=== PATIENT | female | born 1975 | race Hispanic/Latino ===

== ENCOUNTER 2022-08-25 15:12 | Emergency (ER) | payer MEDICAID, SELFPAY ==
--- NOTE | ~2022-08-25 | XR_ITS ---
XR toe 1st RT min 2V 08/25/2022 15:59 INDICATION: Right first toe pain. Infection. PROCEDURE: 3 views right first toe COMPARISON: No prior studies for comparison. FINDINGS: Fracture, dislocation or subluxation is not identified. There is soft tissue swelling of th e first toe with soft tissue gas, consistent with cellulitis. No evidence for underlying osteomyeliti s. No foreign bodies are identified. IMPRESSION: 1: Moderate soft tissue swelling of the first toe with associated gas, consistent with cellulitis. No definite osteomyelitis identified. If there is continued concern for osteomyelitis, further evaluati on with MRI is recommended. Reviewed, dictated and finalized at location L. IMPRESSION: 1: Moderate soft tissue swelling of the first toe with associated gas, consiste nt with cellulitis. No definite osteomyelitis identified. If there is continued concern for osteomyelitis, further evaluation with MRI is recommended.
--- NOTE | 2022-08-25 15:24 | ED.NAVMDI ---
HPI - Nausea/Vomiting/Diarrhea General Chief complaint: Extremity Injury, Lower Stated complaint: Right Foot Wound Source: patient and RN notes reviewed Mode of arrival: ambulatory Limitations: no limitations History of Present Illness MD elicited complaint: nausea, vomiting and diarrhea Related Data Allergies Allergy/AdvReac Type Severity Reaction Status Date / Time No Known Allergies Allergy Unverified 03/20/17 23:15 Review of Systems Review of Systems: CONSTITUTIONAL: Denies malaise, chills, sweats, or fever. ENT: Denies rhinorrhea, congestion, sinus pain, otalgia or sore throat. CARDIOVASCULAR: Denies chest pain, palpitations, or edema. RESPIRATORY: Denies cough or dyspnea. GASTROINTESTINAL: Denies abdominal pain, nausea, vomiting, diarrhea, bloody, or mucous stools. GENITOURINARY: Denies dysuria or hematuria. MUSCULOSKELETAL: Denies myalgia. NEUROLOGIC: Denies headache. All systems reviewed & are unremarkable except as noted in HPI and below PMFSH Comments At time of signature, agree with nursing past medical, surgical, social and family history. There is no relevant family history pertinent to the presenting complaint Exam Narrative: GENERAL: Well-appearing, well-nourished, and in no acute distress. HEAD: Normocephalic, atraumatic. EYES: PERRLA, conjunctivae clear, and EOMI. ENT: Nares clear, turbinates pink, no rhinorrhea or epistaxis. Mucous membranes moist. Oropharynx without edema, erythema, or lesions. Tonsils not enlarged and without exudate. NECK: Supple. No lymphadenopathy CHEST: Speaks in full sentences. No respiratory distress. HEART: Regular rate and rhythm. ABDOMEN: Soft, flat, nondistended, nontender. No guarding, rebound tenderness, or rigidity. No pulsatile masses. Bowel sounds present in all four quadrants. No organomegaly. Negative Chaidez?s sign. No periumbilical tenderness. No Supra public tenderness or distension. Good femoral pulses bilaterally. No hernia noted. No scars or surface trauma. SKIN: Warm, dry, no rash. NEURO: Alert and oriented x3. PSYCH: Normal mood and affect Course Course Emergency Course: Patient is aware of diagnosis, understands and agrees to treatment plan. Anticipatory guidance given. Patient agrees to follow-up as directed and is aware of reasons to seek care at the emergency department. Portions of this record may have been created with voice recognition software Level of Care: Express Care Visit Vital Signs Vital signs: Reviewed. MDM - Nausea/Vomiting/Diarrhea MDM Narrative Medical decision making narrative: No evidence of pancreatitis, AAA, cholecystitis, choledocholithiasis, cholangitis, mesenteric ischemia, small bowel obstruction, diverticulitis, colitis, appendicitis, or pelvic etiology such as ovarian/testicular torsion, TOA, or ectopic . Patient has no history of peptic ulcer, H. pylori, chronic aspirin NSAID or corticosteroid use, chronic alcohol use, no history of inflammatory bowel disease, no history of active abdominal infection or malignancy. Patient has no history of hernia or intra-abdominal surgeries, patient denies absence of flatus, constipation, melena, hematemesis. Patient denies post-prandial pain. No pain-out of proportion. Exam findings show no acute concerns or changes; patient is non-toxic appearing and is in no distress. Patient is appropriate for outpatient treatment and follow-up. Critical Care Time Critical Care Time Critical Care Time: No Discharge Plan Discharge Clinical Impression: Nausea and vomiting Patient Disposition: Home, Self-Care Condition: Stable Instructions: Acute Nausea and Vomiting (ED) Additional Instructions: Your urine looks normal, there is no indication you have urinary tract infection Your rapid strep swab was negative today at [facility]. A throat culture will be sent to the laboratory for further testing. If the test is positive, you will receive a phone call within 48 hours
[2022-08-25 15:27] VITALS: BP 142/74; PULSE 104; RESP 16; TEMP 37.9; O2SAT 99
--- NOTE | 2022-08-25 15:39 | ED.EXTPRO ---
HPI - Extremity Problem General Chief complaint: Extremity Injury, Lower Stated complaint: Right Foot Wound Time Seen by Provider: 08/25/22 15:44 Source: patient and RN notes reviewed Mode of arrival: ambulatory Limitations: dementia History of Present Illness HPI Narrative: 47-year-old female history of diabetes presents with concern for redness, swelling, pain to the 1st digit of her right foot. She reports pain is radiating up her foot, lower leg today. She reports symptoms started 2 days ago. She reports a white ulceration appeared in between the toes today. She denies injury. She denies body aches, chills, sweats. She has low-grade fever today MD Complaint: extremity pain and extremity swelling Related Data Home Medications Medication Instructions Recorded Confirmed No Home Medications 08/25/22 08/25/22 Allergies Allergy/AdvReac Type Severity Reaction Status Date / Time No Known Allergies Allergy Verified 08/25/22 15:31 Review of Systems Review of Systems: CONSTITUTIONAL: Denies malaise, chills, sweats, or fever. EYES: Denies redness, or discharge. ENT: Denies rhinorrhea, congestion, swollen lips, swollen tongue CARDIOVASCULAR: Denies chest pain, palpitations, or edema. RESPIRATORY: Denies cough or dyspnea. GASTROINTESTINAL: Denies abdominal pain, nausea, vomiting SKIN: Reports redness, swelling pain to the 1st digit of the right foot. Denies purulent drainage, vesicles, bullae, numbness, pain beyond proportion MUSCULOSKELETAL: Denies joint pain or myalgia. NEUROLOGIC: Denies headache. All systems reviewed & are unremarkable except as noted in HPI and below PMFSH Comments At time of signature, agree with nursing past medical, surgical, social and family history. There is no relevant family history pertinent to the presenting complaint Exam Narrative: GENERAL: Well-appearing, well-nourished, and in no acute distress. HEAD: Normocephalic, atraumatic. EYES: PERRLA, conjunctivae clear ENT: Mucous membranes moist. NECK: Supple. No lymphadenopathy CHEST: Clear to auscultation. No respiratory distress. HEART: Regular rate and rhythm. SKIN: Warm, dry. Erythema, induration, tenderness, warmth noted to the 1st digit of the right foot, small white ulceration approximately 0.5 cm noted to the low medial 1st digit, white discoloration noted to the pedal aspect of the digit, however patient had applied gentian roosevelt to the digit making it hard to fully evaluate; small amount of redness extending onto the dorsal foot. NEURO: Alert and oriented x3. PSYCH: Normal mood and affect Course Course Emergency Course: Patient is aware of, understands and agrees to be transferred to the emergency room. Patient agrees to proceed directly to the emergency department. Portions of this record may have been created with voice recognition software Level of Care: Express Care Visit Vital Signs Vital signs: Vital Signs Temperature 100.2 F H 08/25/22 15:27 Pulse Rate 104 H 08/25/22 15:27 Respiratory Rate 16 08/25/22 15:27 Blood Pressure 142/74 H 08/25/22 15:27 Pulse Oximetry 99 08/25/22 15:27 Oxygen Delivery Room Air 08/25/22 15:27 Temperature 100.2 F H 08/25/22 15:27 Pulse Rate 104 H 08/25/22 15:27 Respiratory Rate 16 08/25/22 15:27 Blood Pressure 142/74 H 08/25/22 15:27 Pulse Oximetry 99 08/25/22 15:27 Oxygen Delivery Room Air 08/25/22 15:27 Reviewed. Transfer Transfered to: [facility] Transportation: Other (Private vehicle) Transfer rationale: Subcutaneous gas, infection MDM - Extremity (Nontraumatic) MDM Narrative Medical decision making narrative: Exam findings and imaging warrant further evaluation emergency department; patient is non-toxic appearing and is in no distress. Imaging Data Radiologist's impression: XR toe 1st RT min 2V 08/25/2022 15:59 INDICATION: Right first toe pain. Infection. PROCEDURE: 3 views right first toe COMPARISON: No pr
== END 2022-08-25 16:15 | disposition short-term general hospital (02) ==
PROVIDERS: Emergency Provider Nurse Practitioner
DX: L08.9 Local infection of the skin and subcutaneous tissue, unspecified (principal); E11.9 Type 2 diabetes mellitus without complications
CPT/HCPCS: 73660; 99213; G0463

== ENCOUNTER 2022-08-25 16:55 | Inpatient (IN) | payer MEDICAID, SELFPAY ==
--- NOTE | ~2022-08-25 | CT_ITS ---
CT OF EXAMINATION: CT foot RT w con DATE: 08/25/2022 22:05 INDICATION: TECHNIQUE: Computed tomography (CT) of the was performed without intravenous contrast. Automated expo sure control and iterative reconstruction technique were employed. The dose-length product was 467.22 mGy-cm. COMPARISON: X-ray first toe, same date FINDINGS: Mild subcutaneous edema about the ankle and foot. Subcutaneous induration in the first toe. No focal fluid collection. No subcutaneous gas. No osseous fracture. No osseous erosion. Plantar enthesopathy. Possible small soft tissue defect/ulcer on the inferior aspect of the great toe. IMPRESSION: Soft tissue swelling in the first toe and foot. Correlate for clinical findings of cellulitis. No sub cutaneous gas. No CT evidence of abscess or osteomyelitis. Reviewed, dictated and finalized at location K. IMPRESSION: Soft tissue swelling in the first toe and foot. Correlate for clinical findings of cellulitis. No subcutaneous gas. No CT evidence of abscess or osteomyelitis .
[2022-08-25 17:18] VITALS: BP 135/71; PULSE 100; RESP 18; TEMP 36.4; O2SAT 100
--- NOTE | 2022-08-25 20:48 | ED.GENADULT ---
HPI - General Adult General Chief complaint: Skin/Abscess/Foreign Body <Santos Tafoya PA-C - Last Filed: 08/26/22 00:06> Stated complaint: foot infection <JOSE Abdullahi Last Filed: 08/26/22 00:06> Time Seen by Provider: 08/25/22 19:53 <JOSE Abdullahi Last Filed: 08/26/22 00:06> Source: patient <JOSE Abdullahi Last Filed: 08/26/22 00:06> Mode of arrival: ambulatory <JOSE Abdullahi Last Filed: 08/26/22 00:06> Limitations: no limitations <JOSE Abdullahi Last Filed: 08/26/22 00:06> History of Present Illness HPI narrative: This is a 47-year-old female with PMH of T2DM who presents to the ED with chief complaint of right great toe pain and swelling onset x5 days. Patient states that the pain initially began Wednesday. She does a lot of walking for work and noticed that her toe was painful. Over the weekend it became more swollen and red. Today she went to urgent care and was referred here for further evaluation and treatment. Patient reports that she noticed some drainage a few days ago from the toe. Also reports blisters and redness is spreading down to the first MTP but no further in the foot or leg. Denies fevers or chills, nausea or vomiting, chest pain, shortness of breath, cough, abdominal pain. Denies any history of neuropathy or numbness or weakness. Per chart review x-ray of the right foot done today shows 1: Moderate soft tissue swelling of the first toe with associated gas, consistent with cellulitis. No definite osteomyelitis identified. If there is continued concern for osteomyelitis, further evaluation with MRI is recommended.. <JOSE Abdullahi Last Filed: 08/26/22 00:06> Related Data Home medications: Home Medications Medication Instructions Recorded Confirmed No Home Medications 08/25/22 08/26/22 <JOSE Abdullahi Last Filed: 08/26/22 00:06> Allergies/adverse reactions: Allergies Allergy/AdvReac Type Severity Reaction Status Date / Time No Known Allergies Allergy Verified 08/25/22 21:01 <Santos Tafoya PA-C - Last Filed: 08/26/22 00:06> [facility] Social History Social History: Social History Smoking status: Smoker, status unknown Alcohol intake: never Substance use: never Substance use type: does not use Lack of Transportation: No Lack of Food: Never True Current Housing: I Have Housing Concerned About Future Housing: No Difficulty Paying Gas/Electric Bills: No Difficulty Paying for Meds: No Currently Unemployed: No Education: Decline to Answer Difficulty w/ Childcare or Family Care: No Spiritual care concerns: No <Santos Tafoya PA-C - Last Filed: 08/26/22 00:06> Exam Narrative: GENERAL: Well-appearing, well-nourished, and in no acute distress. HEAD: Normocephalic, atraumatic. EYES: PERRLA and EOMI. ENT: Nares clear, no rhinorrhea or epistaxis. Mucous membranes moist. Oropharynx without tonsillar hypertrophy exudate or other lesions. NECK: Supple. No adenopathy or masses. CHEST: No respiratory distress. Clear to auscultation. No wheezes rales or rhonchi HEART: Regular rate and rhythm. No murmur heard. Normal peripheral pulses. ABDOMEN: Soft, nontender, nondistended, normal active bowel sounds. MSK: Right foot: Right great toe erythematous with bullous lesions. There is some serosanguineous drainage from the palmar side of the toe. Left foot: Benign. SKIN: Warm, dry, no rash. NEURO: Alert and oriented x3. No focal deficits. PSYCH: Normal mood and affect. <Santos Tafoya PA-C - Last Filed: 08/26/22 00:06> Course RN FLOAT/PA Physician Supervision Patient presenting from urgent care for right great toe ecchymosis, wound with concern for cellulitis and potential gas forming infection. Time of assessment, patient is hemodynamically stable and well-appearing with stable vital signs. IV access obtained and labs are drawn. Blood cultures obtaine
[2022-08-25 21:09] VITALS: BP 138/77; PULSE 92; RESP 14; O2SAT 99
[2022-08-25 21:10] LABS: Basophils Absolute Auto 0.1 K/mm3 (0.0-0.1); Basophils Percent Auto 0.4 % (0.2-1.2); Eosinophils Absolute Auto 0.1 K/mm3 (0-0.3); Eosinophils Percent Auto 0.6 % (0-4.4); Hemoglobin 11.9 g/dL (12.0-15.0); Immature Granulocyte Absolute 0.12 K/mm3 (0.00-0.031); Immature Granulocyte Percent A 0.7 % (0-0.5); Lymphocytes Absolute Auto 2.69 K/mm3 (0.9-3.2); Lymphocytes Percent Auto 16.4 % (18.3-44.2); Mean Corpuscular Hemoglobin 30.4 pg (26-34); Mean Corpuscular Volume 89.5 fl (80-100); Mean Platelet Volume 10.3 fl (7.4-10.4); Monocytes Percent Auto 5.9 % (2.6-8.5); Neutrophils Absolute Auto 12.5 K/mm3 (1.3-6.7); Platelet Count Result 260 k/mm3 (150-375); Red Blood Count 3.91 M/mm3 (4.2-5.4); Red Cell Distribution Width 12.6 % (11.5-14.5); White Blood Count 16.4 K/mm3 (4.5-10.0)
[2022-08-25 21:23] LABS: Alanine Aminotransferase 36 U/L (6-35); Albumin Level 4.1 g/dL (3.5-5.1); Alkaline Phosphatase 98 U/L (38-126); Anion Gap 8 mmol/L (8-16); Aspartate Amino Transferase 29 U/L (14-36); Bilirubin,Total 0.5 mg/dL (0.2-1.3); Blood Urea Nitrogen 10 mg/dL (7-17); CRP 6.5 mg/dL (<1.0); Calcium 8.8 mg/dL (8.4-10.2); Carbon Dioxide 23 mmol/L (22-30); Chloride 103 mmol/L (98-107); Estimated CRCL calculation 111 ml/min; Estimated Glomerular Filt Rate > 60; Glucose 331 mg/dL (65-110); Potassium 3.9 mmol/L (3.4-5.0); Sodium 134 mmol/L (137-145)
[2022-08-25] MEDS: SODIUM CHLORIDE 0.9% IV 1,000 ML 999 ML IV CONT ×2 (21:45→21:46)
[2022-08-25] MEDS: HYDROmorphone HCL INJ (*CRX) 1 MG/ML SYR 0.5 MG IV PUSH (22:37)
[2022-08-25 23:08] LABS: INR 1.1; Prothrombin Time 14.3 Seconds (11.1-14.7)
[2022-08-25] MEDS: MEROPENEM 1 GM in SODIUM CHLORIDE 0.9% IV 100 ML 200 ML IVPB (23:15)
[2022-08-25 23:19] LABS: Erythrocyte Sedimentation Rate 115 mm/hr (0-20)
[2022-08-25 23:30] LABS: Lactic Acid Reflex 0.8 mmol/L (0.7-2.0)
[2022-08-26] MEDS: VANCOMYCIN 1,250 MG/NS 250 ML 1,250 MG/250 ML BAG 166.67 MG IVPB (00:26)
[2022-08-26 00:27] VITALS: BP 134/73; PULSE 73; RESP 16; O2SAT 98
[2022-08-26] MEDS: SODIUM CHLORIDE 0.9% IV 1,000 ML 125 ML IV CONT (00:48)
[2022-08-26] MEDS: CLINDAMYCIN 900 MG/D5W 50 ML 900 MG/50 ML PIGGYBACK 50 MG IVPB (00:48)
--- NOTE | 2022-08-26 00:52 | PC.NURSE ---
This patient, Charla Harris, was admitted to [facility] Surg Room 311-01. Patient/family oriented to hospital policies and general routines including ID bracelet, bed and alarms, visiting hours, pain management, procedures, bathroom and other care routines, personal items, smoking policy, room service/diet, and visiting hours. Information on how to activate the Rapid Response Team has been discussed. Patient/Family are encouraged to report perceived risks to care and to ask questions if they do not understand what they are told or what they should do.
[2022-08-26 00:56] VITALS: BP 135/68; PULSE 96; RESP 16; TEMP 36.4; O2SAT 95
[2022-08-26 00:57] VITALS: BMI 31.2
--- NOTE | 2022-08-26 01:05 | PC.NURSE ---
pt denies taking medication but did state she is dm, and declines any other medical hx.
[2022-08-26 01:10] LABS: Glucose Point of Care 209 mg/dl (65-105)
--- NOTE | 2022-08-26 01:38 | PM.IMHP ---
H&P: HPI History of Present Illness Date/Time: 08/26/22 01:38 Chief Complaint: Toe cellulitis Narrative: This is a 47-year-old female with past medical history significant for type 2 diabetes mellitus, patient presents to the emergency room with right big toe swelling, discharge, pain, tenderness, warmth, for 2 weeks, patient initially noted an opening on the dorsum of the toe and eventually begin red warm and pain for with purulent discharge. Patient denies any fevers, rigors, chills, nausea, vomiting, diarrhea. Preliminary workup [place] [id number] x-ray of the toe was reported as: XR toe 1st RT min 2V 08/25/2022 15:59 INDICATION: Right first toe pain. Infection. PROCEDURE: 3 views right first toe COMPARISON: No prior studies for comparison. FINDINGS: Fracture, dislocation or subluxation is not identified. There is soft tissue swelling of the first toe with soft tissue gas, consistent with cellulitis. No evidence for underlying osteomyelitis.? No foreign bodies are identified. IMPRESSION: 1: Moderate soft tissue swelling of the first toe with associated gas, consistent with cellulitis. No definite osteomyelitis identified. If there is continued concern for osteomyelitis, further evaluation with MRI is recommended. CT of the foot was reported as: CT OF EXAMINATION: CT foot RT w con DATE: 08/25/2022 22:05 INDICATION: TECHNIQUE: Computed tomography (CT) of the was performed without intravenous contrast. Automated exposure control and iterative reconstruction technique were employed. The dose-length product was 467.22 mGy-cm. COMPARISON: X-ray first toe, same date FINDINGS: Mild subcutaneous edema about the ankle and foot. Subcutaneous induration in the first toe. No focal fluid collection. No subcutaneous gas. No osseous fracture. No osseous erosion. Plantar enthesopathy. Possible small soft tissue defect/ulcer on the inferior aspect of the great toe. IMPRESSION: Soft tissue swelling in the first toe and foot. Correlate for clinical findings of cellulitis. No subcutaneous gas. No CT evidence of abscess or osteomyelitis. Review of Systems Review of Systems: Right toe swelling, tenderness,warmth, redness, discoloration discharge. Constitutional: Constitutional: Denies chills, Denies fatigue, Denies fever(s), Denies malaise, Denies night sweats, Denies poor appetite and Denies weakness Eyes: Eyes: Denies change in vision ENT: Denies dysphagia and Denies odynophagia Cardiovascular: Cardiovascular: Denies chest pain, Denies radiating jaw, neck or arm pain and Denies palpitations Respiratory: Respiratory: Denies chest congestion, Denies cough, Denies excessive phlegm production and Denies dyspnea Gastrointestinal: Gastrointestinal: Denies abdominal pain, Denies dyspepsia, Denies heartburn, Denies diarrhea, Denies nausea and Denies vomiting Genitourinary: Genitourinary: Denies dysuria Musculoskeletal: Musculoskeletal: Reports other (Right toe swelling tenderness discoloration discharge) Integumentary/Breasts: Skin/Breast: Reports swelling (Right toe), Reports skin pain, Reports skin swelling and Reports wounds Neurologic: Denies vertigo, Denies dizziness, Denies focal weakness and Denies Sensory deficit (Neuro) Psychiatric: Psychiatric: Reports no additional psychiatric complaints and Reports as per HPI Endocrine: Endocrine: Denies cold intolerance, Denies flushing, Denies heat intolerance, Denies polyphagia, Denies polydipsia and Denies palpitations Hematologic/Lymphatic: Hematologic/Lymphatic: Reports no additional hematologic/lymphatic complaints and Reports as per HPI Allergic/Immunologic: Allergic/Immunologic: Reports no additional allergic/immunologic complaints and Reports as per HPI COUNT INCLUDES THE [facility] Social History Social History Smoking status: Smoker, status unknown Alcohol intake: never Substance use: never Substance use type: does not use Lack of Transportatio
[2022-08-26 05:51] LABS: Glucose Point of Care 167 mg/dl (65-105)
[2022-08-26 05:56] VITALS: BP 121/65; PULSE 79; RESP 16; TEMP 36.7; O2SAT 99
--- NOTE | 2022-08-26 06:13 | PC.NURSE ---
wound R great inferior toe uploaded to [facility] is morning.
[2022-08-26] MEDS: traMADol HCL (*CRX) 50 MG TABLET PO (08:48)
[2022-08-26 09:12] LABS: Basophils Absolute Auto 0.1 K/mm3 (0.0-0.1); Basophils Percent Auto 0.4 % (0.2-1.2); Eosinophils Absolute Auto 0.2 K/mm3 (0-0.3); Eosinophils Percent Auto 1.4 % (0-4.4); Hematocrit 28.9 % (37.0-47.0); Hemoglobin 9.8 g/dL (12.0-15.0); Immature Granulocyte Absolute 0.05 K/mm3 (0.00-0.031); Immature Granulocyte Percent A 0.4 % (0-0.5); Lymphocytes Absolute Auto 3.27 K/mm3 (0.9-3.2); Lymphocytes Percent Auto 25.6 % (18.3-44.2); Mean Corpuscular HGB Conc 33.9 g/dl (32-36); Mean Corpuscular Hemoglobin 30.3 pg (26-34); Mean Corpuscular Volume 89.5 fl (80-100); Mean Platelet Volume 10.3 fl (7.4-10.4); Monocytes Absolute Auto 0.8 K/mm3 (0.1-0.6); Neutrophils Absolute Auto 8.4 K/mm3 (1.3-6.7); Neutrophils Percent Auto 66.2 % (45.5-73.1); Platelet Count Result 215 k/mm3 (150-375); Red Blood Count 3.23 M/mm3 (4.2-5.4); Red Cell Distribution Width 12.5 % (11.5-14.5); White Blood Count 12.8 K/mm3 (4.5-10.0)
[2022-08-26 09:39] LABS: Hemoglobin A1C 11.1 % (<5.7)
--- NOTE | 2022-08-26 10:54 | PM.CNGS ---
Assessment and Plan Assessment and plan (1) Cellulitis of great toe, right: Code(s): L03.031 - Cellulitis of right toe Status: Acute Assessment and Plan: d/w wound care nurse, no active drainage at this time, no fluctuance, will cont local wound care and abx (2) Uncontrolled diabetes mellitus: Status: Acute Assessment and Plan: will need good bs control, d/w pt History of Present Illness Consult details Consult date: 08/26/22 Reason for consult: wound care Requesting physician: Erik Del Rio MD Narrative: Patient is a old female presenting to the Emergency Department complaining of worsening right 1st toe cellulitis and pain. The patient reports that symptoms started approximately 2 weeks ago with punctate opening on the plantar aspect of right 1st toe. Patient reports some drainage from the area that has progressively worsened to more swelling and cellulitis. The patient reports the area is quite tender and had some purulent drainage. The patient denies any systemic symptoms fevers chills, nausea vomiting. The patient reports that she is diabetic and does suffer from some peripheral neuropathy. Review of Systems Constitutional: Constitutional: Reports as per HPI, Denies anorexia, Denies chills, Denies fatigue, Denies fever(s), Denies lethargy, Denies malaise, Denies poor appetite, Denies weakness, Denies weight gain and Denies weight loss Eyes: Eyes: Reports no additional eye complaints ENT: Reports system reviewed and no additional complaints, except as documented Cardiovascular: Cardiovascular: Reports no additional cardiovascular complaints Respiratory: Respiratory: Reports no additional respiratory complaints Gastrointestinal: Gastrointestinal: Reports no additional gastrointestinal complaints Genitourinary: Genitourinary: Reports no additional female genitourinary complaints Musculoskeletal: Musculoskeletal: Reports no additional musculoskeletal complaints Integumentary/Breasts: Skin/Breast: Reports system reviewed and no additional complaints, except as docu Neurologic: Reports system reviewed and no additional complaints, except as documented Psychiatric: Psychiatric: Reports no additional psychiatric complaints Endocrine: Endocrine: Reports no additional endocrine complaints Hematologic/Lymphatic: Hematologic/Lymphatic: Reports no additional hematologic/lymphatic complaints Allergic/Immunologic: Allergic/Immunologic: Reports no additional allergic/immunologic complaints PMFSH Social History Social History Smoking status: Smoker, status unknown Alcohol intake: never Substance use: never Substance use type: does not use Lack of Transportation: No Lack of Food: Never True Current Housing: I Have Housing Concerned About Future Housing: No Difficulty Paying Gas/Electric Bills: No Difficulty Paying for Meds: No Currently Unemployed: No Education: Decline to Answer Difficulty w/ Childcare or Family Care: No Spiritual care concerns: No Comments PMH - DM PSxH - no foot surgeries, abscess FH - DM, HTN Meds Home Medications and Allergies Home Medications Medication Instructions Recorded Confirmed Type No Home Medications 08/25/22 08/26/22 History Allergies Allergy/AdvReac Type Severity Reaction Status Date / Time No Known Allergies Allergy Verified 08/25/22 21:01 Vital Signs Vital Signs - 24 hr 08/25/22 17:18 08/25/22 21:09 08/26/22 00:27 Temperature 36.4 C L Pulse Rate 100 92 73 Respiratory Rate 18 14 16 Blood Pressure 135/71 138/77 134/73 Pulse Oximetry 100 99 98 Oxygen Delivery Room Air 08/26/22 00:56 08/26/22 05:56 Temperature 36.4 C 36.7 C Pulse Rate 96 79 Respiratory Rate 16 16 Blood Pressure 135/68 121/65 Pulse Oximetry 95 99 Oxygen Delivery Exam Const: General: cooperative, comfortable and no acute distress HENMT: Head: normal t
[2022-08-26 11:25] LABS: Glucose Point of Care 175 mg/dl (65-105)
[2022-08-26] MEDS: VANCOMYCIN 1,250 MG/NS 250 ML 1,250 MG/250 ML BAG 166.6 MG IVPB (11:57)
[2022-08-26] MEDS: INSULIN ASPART (*BKC) 100 UNITS/ML SUB-Q ×2 (12:03→17:17)
[2022-08-26] MEDS: HYDROcodone/acetaminophen (*CRX) 5-325 MG TABLET 1 TAB PO ×2 (12:47→23:06)
[2022-08-26] MEDS: ENOXAPARIN 40 MG/0.4 ML SYRINGE SUB-Q (12:48)
--- NOTE | 2022-08-26 13:00 | PM.IMPN ---
Progress Note: A&P Assessment and Plan (1) Cellulitis of great toe, right: Code(s): L03.031 - Cellulitis of right toe Status: Acute Assessment and Plan: Patient presented with cellulitis of right great toe and shallow ulceration on plantar surface of right great toe. Febrile on presentation, 100.2?, WBC 16.4, CRP 6.5 Continue IV vancomycin. Wound culture and blood culture pending. Appreciate general surgery consultation and wound care evaluation. Remaining afebrile today. WBC trending down. (2) Open wnd toe-complicated: Code(s): S91.109A - Unspecified open wound of unspecified toe(s) without damage to nail, initial encounter Status: Acute Assessment and Plan: See plan as above. Cover blister with dry gauze. (3) Uncontrolled diabetes mellitus: Status: Acute Assessment and Plan: A1c is 11.1. Patient does not appear to be any medications for diabetes at home. With Accu-Cheks low-dose sliding scale insulin, hypoglycemic protocol. 4 units NovoLog scheduled with meals. Initiate Lantus [address] consult to simulation educator. Patient will likely require home insulin as well as metformin. Continue diabetic diet. Subjective Date/time seen: 08/26/22 13:00 Interval history: Date of service: 08/26/2022 Charla Harris is a 47-year-old female with poorly controlled type 2 diabetes mellitus who is seen in follow-up for right toe cellulitis. The patient believes that her right toe looks better today, states that her redness has gone down. She does endorse 9/10 pain in the toe is persistent. States that last night it was draining. She denies nausea, vomiting, fever, or chills. She has been able to ambulate and is walking on her right heel. She denies abdominal pain, chest pain, shortness of breath, urinary symptoms. Review of Systems Review of Systems: All systems reviewed & are unremarkable except as noted in HPI and below Exam Narrative: General: Well-nourished, well-appearing 47-year-old female, sitting up in bed, comfortable, NARD Neuro: awake, alert and oriented x4, speech clear, no focal neuro deficits noted HEENMT: normocephalic, atraumatic, EOMI, sclerae anicteric Respiratory: clear to auscultation bilaterally, nonlabored breathing Cardio: regular rate, regular rhythm with S1-S2 Abdomen: nondistended, normoactive bowel sounds, soft, nontender to palpation Extremities: Right great toe is edematous, erythematous, small ulceration on plantar surface of left toe without drainage or purulence, right lower extremity with 2+ edema, LLE no edema, erythema, or tenderness to palpation, DP pulses 2+ bilaterally, able to wiggle toes bilaterally, brisk capillary refill bilaterally Skin: no rashes or lesions, warm and dry Psych: appropriate mood and affect, judgment and insight intact Objective Data Vital Signs Vital Signs: Vital Signs - 24 hr 08/25/22 17:18 08/25/22 21:09 08/26/22 00:27 Temperature 97.5 F L Pulse Rate 100 92 73 Respiratory Rate 18 14 16 Blood Pressure 135/71 138/77 134/73 Pulse Oximetry 100 99 98 Oxygen Delivery Room Air 08/26/22 00:56 08/26/22 05:56 Temperature 97.6 F 98.1 F Pulse Rate 96 79 Respiratory Rate 16 16 Blood Pressure 135/68 121/65 Pulse Oximetry 95 99 Oxygen Delivery Intake/Output Intake/Output: Intake & Output 08/23/22 08/24/22 08/25/22 08/26/22 23:59 23:59 23:59 23:59 Intake Total 2400 Balance 2400 Meds/Results Medications: Active Medications Generic Name Dose Route Start Last Admin Trade Name Freq PRN Reason Stop Dose Admin Acetaminophen 650 mg 08/26/22 12:06 Acetaminophen 325 Mg Tablet PO Q6H PRN Mild Pain (1-3) or Fever Hydrocodone Bitart/Acetaminophen 1 tab 08/26/22 12:05 08/26/22 12:47 Hydrocodone/Acetaminophen (*Crx) 5-325 Mg Tablet PO 1 tab Q6H PRN Administration Pain Rated 4-6 Al Hydrox/Mg Hydrox/Simethicone 30 ml 08/26
[2022-08-26 14:00] VITALS: BP 107/67; PULSE 83; RESP 14; TEMP 36.4; O2SAT 99
[2022-08-26 16:27] LABS: Glucose Point of Care 183 mg/dl (65-105)
[2022-08-26 20:00] VITALS: O2SAT 99
[2022-08-26 20:35] VITALS: BP 131/74; PULSE 84; RESP 16; TEMP 36.1; O2SAT 100
[2022-08-26 20:38] LABS: Glucose Point of Care 226 mg/dl (65-105)
[2022-08-26] MEDS: INSULIN GLARGINE (*BKC) 100 UNITS/ML 10 UNITS SUB-Q (20:52)
[2022-08-26] MEDS: VANCOMYCIN 1,250 MG/NS 250 ML 1,250 MG/250 ML BAG 250 MG IVPB (23:06)
[2022-08-27] MEDS: HYDROcodone/acetaminophen (*CRX) 5-325 MG TABLET 1 TAB PO ×3 (04:53→20:15)
[2022-08-27 06:07] VITALS: BP 121/66; PULSE 89; RESP 16; TEMP 36.6; O2SAT 100
[2022-08-27 06:46] LABS: Basophils Absolute Auto 0.1 K/mm3 (0.0-0.1); Basophils Percent Auto 0.5 % (0.2-1.2); Eosinophils Absolute Auto 0.2 K/mm3 (0-0.3); Eosinophils Percent Auto 1.6 % (0-4.4); Hematocrit 29.6 % (37.0-47.0); Immature Granulocyte Absolute 0.07 K/mm3 (0.00-0.031); Immature Granulocyte Percent A 0.7 % (0-0.5); Lymphocytes Absolute Auto 3.21 K/mm3 (0.9-3.2); Mean Corpuscular HGB Conc 33.8 g/dl (32-36); Mean Corpuscular Hemoglobin 30.5 pg (26-34); Mean Corpuscular Volume 90.2 fl (80-100); Mean Platelet Volume 10.4 fl (7.4-10.4); Monocytes Absolute Auto 0.7 K/mm3 (0.1-0.6); Monocytes Percent Auto 6.5 % (2.6-8.5); Neutrophils Absolute Auto 6.5 K/mm3 (1.3-6.7); Neutrophils Percent Auto 60.7 % (45.5-73.1); Platelet Count Result 236 k/mm3 (150-375); Red Blood Count 3.28 M/mm3 (4.2-5.4); Red Cell Distribution Width 12.7 % (11.5-14.5); White Blood Count 10.7 K/mm3 (4.5-10.0)
[2022-08-27 06:57] LABS: Anion Gap 2 mmol/L (8-16); Blood Urea Nitrogen 6 mg/dL (7-17); Calcium 7.8 mg/dL (8.4-10.2); Carbon Dioxide 27 mmol/L (22-30); Chloride 107 mmol/L (98-107); Estimated CRCL calculation 116 ml/min; Estimated Glomerular Filt Rate > 60; Glucose 171 mg/dL (65-110); Potassium 3.8 mmol/L (3.4-5.0); Sodium 136 mmol/L (137-145)
--- NOTE | 2022-08-27 07:33 | PM.PNGS ---
Progress Note: A&P Assessment and Plan (1) Cellulitis of great toe, right: Code(s): L03.031 - Cellulitis of right toe Status: Acute Assessment and Plan: unroofed and opened at bedside, cont local wound care, abx Subjective Subjective Date/Time Seen: 08/27/22 07:33 Interval history: reports R toe pain similar, still c some difficulty ambulating Review of Systems Review of Systems: All systems reviewed & are unremarkable except as noted in HPI and below Exam Const: General: cooperative, comfortable and no acute distress Resp: Auscultation: clear to auscultation bilaterally GI: Inspection: normal to inspection GI Palp: No abdominal tenderness Skin: Other: R first toe - blister unroofed, 2mm opening c purulent drainage, area opened slightly and more purulent fluid drained Objective Data Vital Signs Vital Signs: Vital Signs - 24 hr 08/26/22 08:50 08/26/22 14:00 08/26/22 20:00 Temperature 36.4 C L Pulse Rate 83 Respiratory Rate 14 Blood Pressure 107/67 Pulse Oximetry 99 99 Oxygen Delivery Room Air Room Air 08/26/22 20:35 08/27/22 06:07 Temperature 36.1 C L 36.6 C Pulse Rate 84 89 Respiratory Rate 16 16 Blood Pressure 131/74 121/66 Pulse Oximetry 100 100 Oxygen Delivery Intake/Output Intake/Output: Intake & Output 08/24/22 08/25/22 08/26/22 08/27/22 23:59 23:59 23:59 23:59 Intake Total 4440 250 Balance 4440 250 Meds/Results Medications: Active Medications Generic Name Dose Route Start Last Admin Trade Name Freq PRN Reason Stop Dose Admin Acetaminophen 650 mg 08/26/22 12:06 Acetaminophen 325 Mg Tablet PO Q6H PRN Mild Pain (1-3) or Fever Hydrocodone Bitart/Acetaminophen 1 tab 08/26/22 12:05 08/27/22 04:53 Hydrocodone/Acetaminophen (*Crx) 5-325 Mg Tablet PO 1 tab Q6H PRN Administration Pain Rated 4-6 Al Hydrox/Mg Hydrox/Simethicone 30 ml 08/26/22 05:26 Mag Hydrox/Al Hydrox/Simeth 30 Ml Udc PO Q6H PRN Indigestion Dextrose 12.5 gm 06/21/23 08:41 Dextrose 50% 25 Gm/50 Ml Syringe IV PUSH PRN PRN Hypoglycemia Protocol Enoxaparin Sodium 40 mg 08/26/22 09:00 08/26/22 12:48 Enoxaparin 40 Mg/0.4 Ml Syringe SUB-Q 40 mg DAILY LASHAY Administration Glucagon 1 mg 08/26/22 08:41 Glucagon For Inj 1 Mg Vial IM PRN PRN Hypoglycemia Protocol Glucose 15 gm 08/26/22 08:41 Glucose Oral Gel 15 Gm Of Glucse In 37.5 Gm Tube PO PRN PRN Hypoglycemia Protocol Vancomycin HCl 1,250 mg in 250 mls @ 166.667 mls/hr 08/26/22 00:00 08/27/22 00:06 Vancomycin 1,250 Mg/Ns 250 Ml IVPB Infused Q12H LASHAY Infusion Dextrose 1,000 mls @ 100 mls/hr 08/26/22 08:41 Dextrose 5% 1,000 Ml IVPB PRN PRN Hypoglycemia Protocol Insulin Aspart 4 units 08/26/22 08:00 08/26/22 17:17 Insulin Aspart (*Bkc) 100 Units/Ml 0.05 units/kg (4 units) 4 units SUB-Q Administration [facility] Insulin Aspart 2 - 5 units 08/26/22 12:00 08/26/22 17:26 Insulin Aspart (*Bkc) 100 Units/Ml SUB-Q Not Given TID[facility] Protocol Insulin Glargine 10 units 08/26/22 21:00 08/26/22 20:52 Insulin Glargine (*Bkc) 100 Units/Ml SUB-Q 10 units HS LASHAY Administration Ondansetron HCl 4 mg 08/26/22 05:26 Ondansetron Inj 4 Mg/2 Ml Vial IV PUSH Q6H PRN Nausea And Vomiting Polyethylene Glycol 17 gm 08/26/22 05:26 Polyethylene Glycol 3350 17 Gm Powd.Pack PO QAM PRN Constipation Radiology Results: ITS Impressions Foot CT 08/25/22 22:37 IMPRESSION: Soft tissue swelling in the first toe and foot. Correlate for clinical findings of cellulitis. No subcutaneous gas. No CT evidence of abscess or osteomyelitis. Labs Labs: Laboratory Results - last 24 hr 08/25/22 08/26/22 08/26/22 22:42 09:03 11:20 WBC 12.8 H RBC 3.23 L Hgb 9.8 L Hct 28.9 L MCV 89.5 MCH 30.3 M
[2022-08-27 07:51] LABS: Glucose Point of Care 162 mg/dl (65-105)
[2022-08-27] MEDS: ONDANSETRON INJ 4 MG/2 ML VIAL IV PUSH (08:41)
[2022-08-27] MEDS: ENOXAPARIN 40 MG/0.4 ML SYRINGE SUB-Q (08:43)
[2022-08-27] MEDS: INSULIN ASPART (*BKC) 100 UNITS/ML SUB-Q ×4 (08:43→17:11)
[2022-08-27 11:32] LABS: Glucose Point of Care 191 mg/dl (65-105)
[2022-08-27 12:28] LABS: Vancomycin Trough 8.5 ug/mL (10.0-20.0)
[2022-08-27] MEDS: SILVERGEL (ELTA) 45 ML 1 APPLIC TOPICAL (12:42)
[2022-08-27 14:00] VITALS: BP 132/67; PULSE 87; RESP 16; TEMP 36.4; O2SAT 100
--- NOTE | 2022-08-27 14:37 | PM.IMPN ---
Progress Note: A&P Assessment and Plan (1) Cellulitis of great toe, right: Code(s): L03.031 - Cellulitis of right toe Status: Acute Assessment and Plan: Patient presented with cellulitis of right great toe and shallow ulceration on plantar surface of right great toe. Febrile on presentation, 100.2?, WBC 16.4, CRP 6.5. Continue IV vancomycin. Wound culture and blood culture pending. Appreciate general surgery consultation and wound care evaluation. Remaining afebrile today. WBC trending down. (2) Open wnd toe-complicated: Code(s): S91.109A - Unspecified open wound of unspecified toe(s) without damage to nail, initial encounter Status: Acute Assessment and Plan: See plan as above. Seen by General surgery today, blister on removed in opened at the bedside. Continue with local wound care. (3) Uncontrolled diabetes mellitus: Status: Acute Assessment and Plan: A1c is 11.1. Patient's stop taking metformin 1 year ago due to persistent diarrhea, has not been on any medications since then. Continue with Accu-Cheks, low-dose sliding scale insulin, hypoglycemic protocol. 4 units NovoLog scheduled with meals. Lantus 10 units qHS. Appreciate ems educator consultation. Patient is agreeable to starting home insulin. States she cannot tolerate metformin. Unfortunately does not have insurance, therefore treatment options will be very limited. Continue diabetic diet. Subjective Date/time seen: 08/27/22 14:37 Interval history: Date of service: 08/27/2022 Charla Harris is a 47-year-old female with poorly controlled type 2 diabetes mellitus who is seen in follow-up for right toe cellulitis. She is feeling poorly today. She endorses chills, nausea, dizziness, lightheadedness. Denies vomiting, fevers, sweats. Endorses throbbing pain in her right great toe rated 9/10. Denies shortness of breath, cough, chest pain. Review of Systems Review of Systems: All systems reviewed & are unremarkable except as noted in HPI and below Exam Narrative: General: Well-nourished, well-appearing 47-year-old female, sitting up in bed, comfortable, NARD Neuro: awake, alert and oriented x4, speech clear, no focal neuro deficits noted HEENMT: normocephalic, atraumatic, EOMI, sclerae anicteric Respiratory: clear to auscultation bilaterally, nonlabored breathing Cardio: regular rate, regular rhythm with S1-S2 Abdomen: nondistended, normoactive bowel sounds, soft, nontender to palpation Extremities: Right great toe is wrapped in dressing with scant serosanguineous discharge on the plantar surface, right lower extremity with 1+ edema, LLE no edema, erythema, or tenderness to palpation, DP pulses 2+ bilaterally, able to wiggle toes bilaterally, brisk capillary refill bilaterally Skin: no rashes or lesions, warm and dry Psych: appropriate mood and affect, judgment and insight intact Objective Data Vital Signs Vital Signs: Vital Signs - 24 hr 08/26/22 20:00 08/26/22 20:35 08/27/22 06:07 Temperature 97 F L 97.9 F Pulse Rate 84 89 Respiratory Rate 16 16 Blood Pressure 131/74 121/66 Pulse Oximetry 99 100 100 Oxygen Delivery Room Air 08/27/22 14:00 Temperature 97.6 F Pulse Rate 87 Respiratory Rate 16 Blood Pressure 132/67 Pulse Oximetry 100 Oxygen Delivery Intake/Output Intake/Output: Intake & Output 08/24/22 08/25/22 08/26/22 08/27/22 23:59 23:59 23:59 23:59 Intake Total 4440 730 Balance 4440 730 Meds/Results Medications: Active Medications Generic Name Dose Route Start Last Admin Trade Name Freq PRN Reason Stop Dose Admin Acetaminophen 650 mg 08/26/22 12:06 Acetaminophen 325 Mg Tablet PO Q6H PRN Mild Pain (1-3) or Fever Hydrocodone Bitart/Acetaminophen 1 tab 08/26/22 12:05 08/27/22 10:56 Hydrocodone/Acetaminophen (*Crx) 5-325 Mg Tablet PO 1 tab Q6H PRN Administration Pain Rated 4-6 Al Hydrox/Mg Hydrox/Sim
[2022-08-27 16:42] LABS: Glucose Point of Care 290 mg/dl (65-105)
[2022-08-27 16:45] VITALS: BMI 31.2
[2022-08-27 19:33] LABS: Glucose Point of Care 184 mg/dl (65-105)
[2022-08-27] MEDS: INSULIN GLARGINE (*BKC) 100 UNITS/ML 10 UNITS SUB-Q (20:10)
[2022-08-27 22:11] VITALS: BP 141/71; PULSE 92; RESP 16; TEMP 37.2; O2SAT 97
[2022-08-28] MEDS: HYDROcodone/acetaminophen (*CRX) 5-325 MG TABLET 1 TAB PO (04:57)
[2022-08-28 05:59] VITALS: BP 120/69; PULSE 66; RESP 16; TEMP 36.6; O2SAT 98
[2022-08-28 06:24] LABS: Hematocrit 30.4 % (37.0-47.0); Hemoglobin 10.2 g/dL (12.0-15.0); Mean Corpuscular HGB Conc 33.6 g/dl (32-36); Mean Corpuscular Hemoglobin 29.9 pg (26-34); Mean Corpuscular Volume 89.1 fl (80-100); Mean Platelet Volume 10.6 fl (7.4-10.4); Platelet Count Result 247 k/mm3 (150-375); Red Blood Count 3.41 M/mm3 (4.2-5.4); Red Cell Distribution Width 12.3 % (11.5-14.5); White Blood Count 11.9 K/mm3 (4.5-10.0)
[2022-08-28 06:35] LABS: Anion Gap 5 mmol/L (8-16); Blood Urea Nitrogen 5 mg/dL (7-17); Calcium 8.2 mg/dL (8.4-10.2); Carbon Dioxide 27 mmol/L (22-30); Chloride 100 mmol/L (98-107); Estimated CRCL calculation 116 ml/min; Estimated Glomerular Filt Rate > 60; Glucose 218 mg/dL (65-110); Potassium 3.7 mmol/L (3.4-5.0); Sodium 132 mmol/L (137-145)
[2022-08-28 07:31] LABS: Glucose Point of Care 212 mg/dl (65-105)
[2022-08-28] MEDS: INSULIN ASPART (*BKC) 100 UNITS/ML SUB-Q ×5 (08:16→16:26)
[2022-08-28] MEDS: SILVERGEL (ELTA) 45 ML 1 APPLIC TOPICAL (08:17)
[2022-08-28] MEDS: ENOXAPARIN 40 MG/0.4 ML SYRINGE SUB-Q (08:17)
[2022-08-28 11:35] LABS: Glucose Point of Care 181 mg/dl (65-105)
--- NOTE | 2022-08-28 12:31 | P.CDI_ITS ---
CDI Query Clarification Request Please clarify if there is a cause and effect relationship between Cellulitis and Diabetes Mellitus. * There is a cause and effect relationship between Cellulitis and Diabetes mellitus * There is not a cause and effect relationship between Cellulitis and Diabetes Mellitus. * Unknown if there is a cause and effect relationship between Cellulitis and Diabetes Mellitus. <Britany Owens RN - Last Filed: 08/28/22 12:37> Clarified Diagnosis Clarified Diagnosis: Patient with diabetic foot ulcer. There is likely correlation between poorly controlled diabetes and cellulitis. <Adele Sena PA-C - Last Filed: 08/28/22 15:35>
[2022-08-28 13:50] VITALS: BP 121/63; PULSE 82; RESP 16; TEMP 36.2; O2SAT 99
--- NOTE | 2022-08-28 15:35 | PM.IMPN ---
Progress Note: A&P Assessment and Plan (1) Cellulitis of great toe, right: Code(s): L03.031 - Cellulitis of right toe Status: Acute Assessment and Plan: Patient presented with cellulitis of right great toe and shallow ulceration on plantar surface of right great toe. Febrile on presentation, 100.2?, WBC 16.4, CRP 6.5. Continue IV vancomycin. Wound culture with growth of group B strep. Blood cultures negative to date Appreciate general surgery consultation Slight increase in WBC today to 11.9. Continue to trend (2) Open wnd toe-complicated: Code(s): S91.109A - Unspecified open wound of unspecified toe(s) without damage to nail, initial encounter Status: Acute Assessment and Plan: See plan as above. Appreciate general surgery consultation 622 blister unroofed and opened at the bedside. Continue with local wound care. (3) Uncontrolled diabetes mellitus: Status: Acute Assessment and Plan: A1c is 11.1. Patient stoped taking metformin 1 year ago due to persistent diarrhea, has not been on any medications since then. Continue with Accu-Cheks, low-dose sliding scale insulin, hypoglycemic protocol. 5 units NovoLog scheduled with meals. Lantus 12 units qHS. Appreciate certified breastfeeding educator consultation. Patient is agreeable to starting home insulin. States she cannot tolerate metformin. Unfortunately does not have insurance, therefore treatment options will be limited. Continue diabetic diet. Subjective Date/time seen: 08/28/22 15:35 Interval history: Date of service: 08/28/2022 Charla Harris is a 47-year-old female with poorly controlled type 2 diabetes mellitus who is seen in follow-up for right toe cellulitis. She is starting to feel better today. Her pain is better controlled. Currently rates her right toe pain is 4/10. Denies any drainage from the wound. Feels that her swelling has improved. She is able to ambulate by walking on her right heel. Denies fevers, chills, sweats, nausea, vomiting. No shortness of breath, cough, chest pain. Review of Systems Review of Systems: All systems reviewed & are unremarkable except as noted in HPI and below Exam Narrative: General: Well-nourished, well-appearing 47-year-old female, sitting up in bed, comfortable, NARD Neuro: awake, alert and oriented x4, speech clear, no focal neuro deficits noted HEENMT: normocephalic, atraumatic, EOMI, sclerae anicteric Respiratory: clear to auscultation bilaterally, nonlabored breathing Cardio: regular rate, regular rhythm with S1-S2 Abdomen: nondistended, normoactive bowel sounds, soft, nontender to palpation Extremities: Right great toe is wrapped in dressing that is clean and dry, right lower extremity with trace edema, LLE no edema, erythema, or tenderness to palpation, DP pulses 2+ bilaterally, able to wiggle toes bilaterally, brisk capillary refill bilaterally Skin: no rashes or lesions, warm and dry Psych: appropriate mood and affect, judgment and insight intact Objective Data Vital Signs Vital Signs: Vital Signs - 24 hr 08/27/22 22:11 08/27/22 20:00 08/28/22 05:59 Temperature 99 F 97.8 F Pulse Rate 92 66 Respiratory Rate 16 16 Blood Pressure 141/71 H 120/69 Pulse Oximetry 97 98 Oxygen Delivery Room Air 08/28/22 08:25 08/28/22 13:50 Temperature 97.1 F L Pulse Rate 82 Respiratory Rate 16 Blood Pressure 121/63 Pulse Oximetry 99 Oxygen Delivery Room Air Intake/Output Intake/Output: Intake & Output 08/25/22 08/26/22 08/27/22 08/28/22 23:59 23:59 23:59 23:59 Intake Total 4440 1770 1100 Balance 4440 1770 1100 Meds/Results Medications: Active Medications Generic Name Dose Route Start Last Admin Trade Name Freq PRN Reason Stop Dose Admin Acetaminophen 650 mg 08/26/22 12:06 Acetaminophen 325 Mg Tablet PO Q6H PRN Mild Pain (1-3) or Fever Hydrocodone Bitart/Acetaminophen 1 tab 08/26/22 12:
[2022-08-28 16:21] LABS: Glucose Point of Care 230 mg/dl (65-105)
[2022-08-28 19:48] LABS: Glucose Point of Care 227 mg/dl (65-105)
[2022-08-28] MEDS: INSULIN GLARGINE (*BKC) 100 UNITS/ML 12 UNITS SUB-Q (19:59)
[2022-08-28 21:15] VITALS: BP 129/61; PULSE 81; RESP 20; TEMP 36.5; O2SAT 99
[2022-08-29 01:12] LABS: Vancomycin Trough 10.9 ug/mL (10.0-20.0)
[2022-08-29] MEDS: HYDROcodone/acetaminophen (*CRX) 5-325 MG TABLET 1 TAB PO ×3 (01:54→22:53)
[2022-08-29 05:17] VITALS: BP 107/65; PULSE 74; RESP 18; TEMP 36.8; O2SAT 98
[2022-08-29 07:06] LABS: Hematocrit 33.1 % (37.0-47.0); Mean Corpuscular HGB Conc 33.2 g/dl (32-36); Mean Corpuscular Hemoglobin 29.6 pg (26-34); Mean Platelet Volume 10.1 fl (7.4-10.4); Platelet Count Result 272 k/mm3 (150-375); Red Blood Count 3.72 M/mm3 (4.2-5.4); Red Cell Distribution Width 12.3 % (11.5-14.5); White Blood Count 11.3 K/mm3 (4.5-10.0)
[2022-08-29 07:19] LABS: Anion Gap 6 mmol/L (8-16); Blood Urea Nitrogen 8 mg/dL (7-17); Calcium 8.5 mg/dL (8.4-10.2); Carbon Dioxide 29 mmol/L (22-30); Chloride 100 mmol/L (98-107); Estimated CRCL calculation 116 ml/min; Estimated Glomerular Filt Rate > 60; Glucose 232 mg/dL (65-110); Potassium 3.6 mmol/L (3.4-5.0); Sodium 135 mmol/L (137-145)
[2022-08-29 07:29] LABS: Glucose Point of Care 203 mg/dl (65-105)
[2022-08-29] MEDS: ENOXAPARIN 40 MG/0.4 ML SYRINGE SUB-Q (08:08)
[2022-08-29] MEDS: SILVERGEL (ELTA) 45 ML 1 APPLIC TOPICAL (08:08)
[2022-08-29] MEDS: INSULIN ASPART (*BKC) 100 UNITS/ML SUB-Q ×4 (08:08→12:08)
[2022-08-29 11:30] LABS: Glucose Point of Care 253 mg/dl (65-105)
[2022-08-29 14:00] VITALS: BP 137/84; PULSE 83; RESP 16; TEMP 36.1; O2SAT 98
--- NOTE | 2022-08-29 14:38 | PM.IMPN ---
Progress Note: A&P Assessment and Plan (1) Cellulitis of great toe, right: Code(s): L03.031 - Cellulitis of right toe Status: Acute Assessment and Plan: Patient presented with cellulitis of right great toe and shallow ulceration on plantar surface of right great toe. Febrile on presentation, 100.2?, WBC 16.4, CRP 6.5. Wound culture with growth of group B strep Will transition to IV Rocephin per ID pharm D recommendations Blood cultures negative today Appreciate general surgery consultation WBC remains elevated, 11.3 today. Continue to trend Slight increase in cellulitis over the MTP joints, patient with more pain today. Will continue to monitor closely. Appreciate general surgery re-evaluation (2) Open wnd toe-complicated: Code(s): S91.109A - Unspecified open wound of unspecified toe(s) without damage to nail, initial encounter Status: Acute Assessment and Plan: See plan as above. Appreciate general surgery consultation 08/27 blister unroofed and opened at the bedside. Continue with local wound care and dressing (3) Uncontrolled diabetes mellitus: Status: Acute Assessment and Plan: A1c is 11.1. Patient stoped taking metformin 1 year ago due to persistent diarrhea, has not been on any medications since then. Continue with Accu-Cheks, low-dose sliding scale insulin, hypoglycemic protocol. Blood sugar still poorly controlled. Increase NovoLog to 6 units scheduled with meals and Lantus to 14 units qHS. Appreciate software educator consultation. Patient is agreeable to starting home insulin. States she cannot tolerate metformin. Unfortunately does not have insurance, therefore treatment options will be limited. Consider glimepiride on discharge Continue diabetic diet. Subjective Date/time seen: 08/29/22 14:38 Interval history: Date of service: 08/29/2022 Charla Harris is a 47-year-old female with poorly controlled type 2 diabetes mellitus who is seen in follow-up for right toe cellulitis. Patient continues to endorse pain in her right great toe. She has noticed pains spreading up her dorsal foot and she feels that there is increased redness on her foot. She also complains of feeling dizzy. She denies nausea or vomiting. No fevers or chills. She is still able to ambulate well walking on her heels without significant discomfort but putting any weight on the toe is very painful. Review of Systems Review of Systems: All systems reviewed & are unremarkable except as noted in HPI and below Exam Narrative: General: Well-nourished, well-appearing 47-year-old female, sitting up in bed, comfortable Neuro: awake, alert and oriented x4, speech clear, no focal neuro deficits noted HEENMT: normocephalic, atraumatic, EOMI, sclerae anicteric Respiratory: clear to auscultation bilaterally, nonlabored breathing Cardio: regular rate, regular rhythm with S1-S2 Abdomen: nondistended, normoactive bowel sounds, soft, nontender to palpation Extremities: Right great toe with open wound on plantar surface with some surrounding purulence and serosanguineous exudate, dorsal toe is red extending laterally over the MTP joints to the third toe. right lower extremity with trace edema, LLE no edema, erythema, or tenderness to palpation, DP pulses 2+ bilaterally, able to wiggle toes bilaterally, brisk capillary refill bilaterally Skin: no rashes or lesions, warm and dry Psych: appropriate mood and affect, judgment and insight intact Objective Data Vital Signs Vital Signs: Vital Signs - 24 hr 08/28/22 20:00 08/28/22 21:15 08/29/22 05:17 Temperature 97.7 F 98.2 F Pulse Rate 81 74 Respiratory Rate 20 18 Blood Pressure 129/61 107/65 Pulse Oximetry 99 98 Oxygen Delivery Room Air 08/29/22 08:00 08/29/22 14:00 Temperature 96.9 F L Pulse Rate 83 Respiratory Rate 16 Blood Pressure 137/84 Pulse Oximetry 98 Oxygen Delivery Room Air Intake/Output I
[2022-08-29] MEDS: INSULIN ASPART (*BKC) 100 UNITS/ML 6 UNITS SUB-Q (16:25)
[2022-08-29 16:31] LABS: Glucose Point of Care 195 mg/dl (65-105)
[2022-08-29 19:23] LABS: Glucose Point of Care 161 mg/dl (65-105)
[2022-08-29] MEDS: INSULIN GLARGINE (*BKC) 100 UNITS/ML 14 UNITS SUB-Q (20:37)
[2022-08-29 21:46] VITALS: BP 147/82; PULSE 85; RESP 22; TEMP 35.8; O2SAT 98
[2022-08-30 06:00] VITALS: BP 105/74; PULSE 80; RESP 16; TEMP 36.2; O2SAT 99
[2022-08-30 07:01] LABS: Hematocrit 32.8 % (37.0-47.0); Hemoglobin 10.9 g/dL (12.0-15.0); Mean Corpuscular HGB Conc 33.2 g/dl (32-36); Mean Corpuscular Hemoglobin 29.9 pg (26-34); Mean Corpuscular Volume 89.9 fl (80-100); Mean Platelet Volume 10.2 fl (7.4-10.4); Platelet Count Result 285 k/mm3 (150-375); Red Blood Count 3.65 M/mm3 (4.2-5.4); Red Cell Distribution Width 12.5 % (11.5-14.5); White Blood Count 13.2 K/mm3 (4.5-10.0)
[2022-08-30 07:12] LABS: Anion Gap 5 mmol/L (8-16); Blood Urea Nitrogen 16 mg/dL (7-17); CRP 2.4 mg/dL (<1.0); Carbon Dioxide 28 mmol/L (22-30); Chloride 102 mmol/L (98-107); Estimated CRCL calculation 86 ml/min; Estimated Glomerular Filt Rate > 60; Glucose 220 mg/dL (65-110); Potassium 4.1 mmol/L (3.4-5.0); Sodium 135 mmol/L (137-145)
[2022-08-30 07:45] LABS: Glucose Point of Care 200 mg/dl (65-105)
[2022-08-30] MEDS: INSULIN ASPART (*BKC) 100 UNITS/ML 6 UNITS SUB-Q ×3 (08:36→16:32)
[2022-08-30] MEDS: SILVERGEL (ELTA) 45 ML 1 APPLIC TOPICAL (08:36)
[2022-08-30] MEDS: ENOXAPARIN 40 MG/0.4 ML SYRINGE SUB-Q (08:36)
--- NOTE | 2022-08-30 11:14 | PM.IMPN ---
Progress Note: A&P Assessment and Plan (1) Cellulitis of great toe, right: Code(s): L03.031 - Cellulitis of right toe Status: Acute Assessment and Plan: Patient presented with cellulitis of right great toe and shallow ulceration on plantar surface of right great toe. Febrile on presentation, 100.2?, WBC 16.4, CRP 6.5. Wound culture with growth of group B strep Received IV vancomycin, transition to IV Rocephin on 08/29 based on culture results, continue at this time Blood cultures negative to date Appreciate general surgery consultation Increase in WBC today, up to 13.2 Overall change in appearance, increased redness and more pain. Appreciate general surgery re-evaluation Consider broadening antibiotic coverage pending General surgery recommendations (2) Open wnd toe-complicated: Code(s): S91.109A - Unspecified open wound of unspecified toe(s) without damage to nail, initial encounter Status: Acute Assessment and Plan: See plan as above. Appreciate general surgery consultation 08/27 blister unroofed and opened at the bedside. Continue with local wound care and dressing (3) Uncontrolled diabetes mellitus: Status: Acute Assessment and Plan: A1c is 11.1. Patient stopped taking metformin 1 year ago due to persistent diarrhea, has not been on any medications since then. Continue with Accu-Cheks, high-dose sliding scale insulin, hypoglycemic protocol. Blood sugars still poorly controlled. Continue novoLog 6 units scheduled with meals, increase Lantus to 16 units qHS. Appreciate adaptive physical educator consultation. Patient is agreeable to starting home insulin. States she cannot tolerate metformin. Unfortunately does not have insurance, therefore treatment options will be limited. Consider glimepiride on discharge Continue diabetic diet. Subjective Date/time seen: 08/30/22 11:14 Interval history: Date of service: 08/30/2022 Charla Harris is a 47-year-old female with poorly controlled type 2 diabetes mellitus who is seen in follow-up for right great toe cellulitis/diabetic foot wound. She continues to endorse pain in the right great toe, reports some slight improvement today. Still is noticing some redness at the top of the toe and pain shooting down the dorsum of the foot. Denies fevers or chills. No nausea or vomiting. She is tolerating her diet and tolerating activity. Review of Systems Review of Systems: All systems reviewed & are unremarkable except as noted in HPI and below Exam Narrative: General: Well-nourished, well-appearing 47-year-old female, sitting up in bed, comfortable Neuro: awake, alert and oriented x4, speech clear, no focal neuro deficits noted HEENMT: normocephalic, atraumatic, EOMI, sclerae anicteric Respiratory: clear to auscultation bilaterally, nonlabored breathing Cardio: regular rate, regular rhythm with S1-S2 Abdomen: nondistended, normoactive bowel sounds, soft, nontender to palpation Extremities: Right great toe with open wound on plantar surface with surrounding purulence and serosanguineous exudate, dorsal toe is red extending laterally over the MTP joints to the third toe. right lower extremity with trace edema, LLE no edema, erythema, or tenderness to palpation, DP pulses 2+ bilaterally, able to wiggle toes bilaterally, brisk capillary refill bilaterally Skin: no rashes or lesions, warm and dry Psych: appropriate mood and affect, judgment and insight intact Objective Data Vital Signs Vital Signs: Vital Signs - 24 hr 08/29/22 14:00 08/29/22 20:00 08/29/22 21:46 Temperature 96.9 F L 96.4 F L Pulse Rate 83 85 Respiratory Rate 16 22 H Blood Pressure 137/84 147/82 H Pulse Oximetry 98 98 Oxygen Delivery Room Air 08/30/22 06:00 08/30/22 08:25 Temperature 97.2 F L Pulse Rate 80 Respiratory Rate 16 Blood Pressure 105/74 Pulse Oximetry 99 Oxygen Delivery Room Air Intake/Output Intake/Output:
[2022-08-30 11:36] LABS: Glucose Point of Care 244 mg/dl (65-105)
[2022-08-30] MEDS: INSULIN ASPART (*BKC) 100 UNITS/ML SUB-Q ×2 (11:39→16:32)
[2022-08-30 14:00] VITALS: BP 118/69; PULSE 93; RESP 20; TEMP 36.7; O2SAT 100
--- NOTE | 2022-08-30 15:57 | PM.PNGS ---
Progress Note: A&P Assessment and Plan (1) Abscess of great toe of right foot: Code(s): L02.611 - Cutaneous abscess of right foot Status: Acute Assessment and Plan: Appears the patient has now developed a abscess plantar surface of her right great toe. He will need to be incised and drained. Continue with antibiotics for now and will keep her NPO in the morning and try to add her onto the operative schedule. Will discuss with Dr. Bradley. Subjective Subjective Date/Time Seen: 08/30/22 15:57 Interval history: Patient was seen by Dr. Bradley 3 days ago when there was a blister on the plantar surface of the right great toe. The blister was opened at the bedside and drained. There was initial improvement but then last 24hours been increased redness and drainage from the toe. Exam Const: General: comfortable and no acute distress Resp: Effort & Inspection: normal respiratory effort Auscultation: clear to auscultation bilaterally Cardio: Rate: regular rate Rhythm: regular rhythm GI: GI Palp: Yes Soft to palpation, No Firmness to palpation present (GI), No Tenderness to palpation present (GI), No Guarding due to palpation present (GI) and No Hernia present Neuro: Speech: normal speech Motor exam (neuro): 5/5 motor strength present throughout Sensory Exam: normal sensation Extrem: Other: Right great toe plantar surface 1 to 2 cm subcutaneous abscess was some drainage of purulent fluid. Mild erythema of the toe distally but no extension to the metatarsophalangeal joint. Able to move all of her toes. Psych: Mental Status: mental status grossly normal Affect: normal affect Objective Data Vital Signs Vital Signs: Vital Signs - 24 hr 08/29/22 20:00 08/29/22 21:46 08/30/22 06:00 Temperature 35.8 C L 36.2 C L Pulse Rate 85 80 Respiratory Rate 22 H 16 Blood Pressure 147/82 H 105/74 Pulse Oximetry 98 99 Oxygen Delivery Room Air 08/30/22 08:25 08/30/22 14:00 Temperature 36.7 C Pulse Rate 93 Respiratory Rate 20 Blood Pressure 118/69 Pulse Oximetry 100 Oxygen Delivery Room Air Intake/Output Intake/Output: Intake & Output 08/27/22 08/28/22 08/29/22 08/30/22 23:59 23:59 23:59 23:59 Intake Total 1770 2080 2320 480 Balance 17690 480 Meds/Results Medications: Active Medications Generic Name Dose Route Start Last Admin Trade Name Freq PRN Reason Stop Dose Admin Acetaminophen 650 mg 08/26/22 12:06 Acetaminophen 325 Mg Tablet PO Q6H PRN Mild Pain (1-3) or Fever Hydrocodone Bitart/Acetaminophen 1 tab 08/26/22 12:05 08/29/22 22:53 Hydrocodone/Acetaminophen (*Crx) 5-325 Mg Tablet PO 1 tab Q6H PRN Administration Pain Rated 4-6 Al Hydrox/Mg Hydrox/Simethicone 30 ml 08/26/22 05:26 Mag Hydrox/Al Hydrox/Simeth 30 Ml Udc PO Q6H PRN Indigestion Dextrose 12.5 gm 08/26/22 08:41 Dextrose 50% 25 Gm/50 Ml Syringe IV PUSH PRN PRN Hypoglycemia Protocol Enoxaparin Sodium 40 mg 08/26/22 09:00 08/30/22 08:36 Enoxaparin 40 Mg/0.4 Ml Syringe SUB-Q 40 mg DAILY LASHAY Administration Glucagon 1 mg 08/26/22 08:41 Glucagon For Inj 1 Mg Vial IM PRN PRN Hypoglycemia Protocol Glucose 15 gm 08/26/22 08:41 Glucose Oral Gel 15 Gm Of Glucse In 37.5 Gm Tube PO PRN PRN Hypoglycemia Protocol Dextrose 1,000 mls @ 100 mls/hr 08/26/22 08:41 Dextrose 5% 1,000 Ml IVPB PRN PRN Hypoglycemia Protocol Ceftriaxone Sodium 1 gm in 50 mls @ 100 mls/hr 08/29/22 15:00 08/29/22 16:55 Rocephin 1 Gm/Ns 50 Ml IVPB 100 mls/hr Q24H LASHAY Infusion Insulin Aspart 6 units 08/29/22 17:00 08/30/22 11:38 Insulin Aspart (*Bkc) 100 Units/Ml SUB-Q 6 units TIDWM LASHAY Administration Insulin Aspart 4 - 8 units 08/30/22 12:00 08/30/22 11:39 Insulin Aspart (*Bkc) 100 Units/Ml SUB-Q 4 units TIDWM LASHAY Administration Protocol Insulin Glargine
[2022-08-30 16:35] LABS: Glucose Point of Care 210 mg/dl (65-105)
[2022-08-30 20:35] LABS: Glucose Point of Care 186 mg/dl (65-105)
[2022-08-30] MEDS: INSULIN GLARGINE (*BKC) 100 UNITS/ML 16 UNITS SUB-Q (21:27)
[2022-08-30 21:28] VITALS: BP 140/77; PULSE 89; RESP 18; TEMP 37.3; O2SAT 99
[2022-08-30] MEDS: HYDROcodone/acetaminophen (*CRX) 5-325 MG TABLET 1 TAB PO (21:28)
[2022-08-31] VITALS (13 sets, daily range): BP systolic 105–158; BP diastolic 62–78; PULSE 78–89; RESP 12–16; TEMP 36.2–36.8; O2SAT 94–100
[2022-08-31] MEDS: LACTATED RINGERS 1,000 ML 75 ML IV CONT (01:44)
[2022-08-31 06:40] LABS: Anion Gap 4 mmol/L (8-16); Blood Urea Nitrogen 13 mg/dL (7-17); Carbon Dioxide 28 mmol/L (22-30); Chloride 104 mmol/L (98-107); Estimated CRCL calculation 86 ml/min; Estimated Glomerular Filt Rate > 60; Glucose 166 mg/dL (65-110); Potassium 3.9 mmol/L (3.4-5.0); Sodium 136 mmol/L (137-145)
[2022-08-31 06:41] LABS: Basophils Absolute Auto 0.1 K/mm3 (0.0-0.1); Basophils Percent Auto 0.5 % (0.2-1.2); Eosinophils Absolute Auto 0.3 K/mm3 (0-0.3); Eosinophils Percent Auto 2.4 % (0-4.4); Hemoglobin 10.9 g/dL (12.0-15.0); Immature Granulocyte Absolute 0.11 K/mm3 (0.00-0.031); Immature Granulocyte Percent A 0.8 % (0-0.5); Lymphocytes Absolute Auto 4.05 K/mm3 (0.9-3.2); Lymphocytes Percent Auto 30.8 % (18.3-44.2); Mean Corpuscular Hemoglobin 29.9 pg (26-34); Mean Corpuscular Volume 90.4 fl (80-100); Mean Platelet Volume 10.2 fl (7.4-10.4); Monocytes Absolute Auto 0.8 K/mm3 (0.1-0.6); Monocytes Percent Auto 6.2 % (2.6-8.5); Neutrophils Absolute Auto 7.8 K/mm3 (1.3-6.7); Neutrophils Percent Auto 59.3 % (45.5-73.1); Platelet Count Result 294 k/mm3 (150-375); Red Blood Count 3.65 M/mm3 (4.2-5.4); Red Cell Distribution Width 12.5 % (11.5-14.5); White Blood Count 13.2 K/mm3 (4.5-10.0)
[2022-08-31 07:38] LABS: Glucose Point of Care 166 mg/dl (65-105)
--- NOTE | 2022-08-31 08:16 | PC.NURSE ---
Patient to OR via stretcher.
--- NOTE | 2022-08-31 08:29 | WPDANESEPPF ---
Anes - Initial Pre Proc Eval Procedure: Operation Date: 08/31/22 09:00 Proposed Procedures p Incision and Debridement Right Great Toe Abscess - Hunter Skinner MD Date/Time: 08/31/22 08:29 Surgeon: Adele Sena PA-C Pre Op Diagnosis: Cellulitis Right Great Toe/Uncontrolled Diabetes Patient Data Age: 47 Gender: F Height: 1.6 m Weight: 80 kg Last Vital Signs Temp 36.2 C L 08/31/22 05:24 Pulse 83 08/31/22 05:24 Resp 16 08/31/22 05:24 BP 113/64 08/31/22 05:24 Pulse Ox 99 08/31/22 05:24 O2 Del Method Room Air 08/31/22 08:00 Allergies Allergy/AdvReac Type Severity Reaction Status Date / Time No Known Allergies Allergy Verified 08/31/22 08:25 Home Medications Medication Instructions Recorded Confirmed Type No Home Medications 08/25/22 08/26/22 History Laboratory Tests 08/30/22 08/30/22 08/30/22 11:32 16:32 20:31 WBC RBC Hgb Hct MCV MCH MCHC RDW Plt Count MPV Immature Gran % (Auto) Neut % (Auto) Lymph % (Auto) [place] % (Auto) Eos % (Auto) Baso % (Auto) Lymph # (Auto) [place] # (Auto) Eos # (Auto) Baso # (Auto) Abs Immat Gran (auto) Absolute Neuts (auto) Absolute Nucleated RBC Nucleated RBC % Sodium Potassium Chloride Carbon Dioxide Anion Gap BUN Creatinine Estim Creat Clear Calc Estimated GFR Glucose POC Capillary Glucose 244 H mg/dl 210 H mg/dl 186 H mg/dl (65-105) (65-105) (65-105) Calcium 08/31/22 08/31/22 05:55 07:34 WBC 13.2 H K/mm3 (4.5-10.0) RBC 3.65 L M/mm3 (4.2-5.4) Hgb 10.9 L g/dL (12.0-15.0) Hct 33.0 L % (37.0-47.0) MCV 90.4 fl (80-100) MCH 29.9 pg (26-34) MCHC 33.0 g/dl (32-36) RDW 12.5 % (11.5-14.5) Plt Count 294 k/mm3 (150-375) MPV 10.2 fl (7.4-10.4) Immature Gran % (Auto) 0.8 H % (0-0.5) Neut % (Auto) 59.3 % (45.5-73.1) Lymph % (Auto) 30.8 % (18.3-44.2) [place] % (Auto) 6.2 % (2.6-8.5) Eos % (Auto) 2.4 % (0-4.4) Baso % (Auto) 0.5 % (0.2-1.2) Lymph # (Auto) 4.05 H K/mm3 (0.9-3.2) [place] # (Auto) 0.8 H K/mm3 (0.1-0.6) Eos # (Auto) 0.3 K/mm3 (0-0.3) Baso # (Auto) 0.1 K/mm3 (0.0-0.1) Abs Immat Gran (auto) 0.11 H K/mm3 (0.00-0.031) Absolute Neuts (auto) 7.8 H K/mm3 (1.3-6.7) Absolute Nucleated RBC 0.0 K/mm3 (0.0-0.012) Nucleated RBC % 0.0 % (0.0-0.2) Sodium 136 L mmol/L (137-145) Potassium 3.9 mmol/L (3.4-5.0) Chloride 104 mmol/L (98-107) Carbon Dioxide 28 mmol/L (22-30) Anion Gap 4 L mmol/L (8-16) BUN 13 mg/dL (7-17) Creatinine 0.70 mg/dL (0.7-1.0) Estim Creat Clear Calc 86 ml/min Estimated GFR > 60 (59 - ) Glucose 166 H mg/dL (65-110) POC Capillary Glucose 166 H mg/dl (65-105) Calcium 9.0 mg/dL (8.4-10.2) Patient hx anesthesia problems: none Family hx anesthesia problems: none Results Review: All pre-operative results and documents have been reviewed as part of the pre-operative evaluation. [facility] Past Medical History Medical History (Updated 08/31/22 @ 08:30 by Nikolai Dorsey DO) Diabetes type 2, controlled Social History Social History Smoking status: Smoker, status unknown Alcohol intake: never Substance use: never Substance use type: does not use Lack of Transportation: No Lack of Food: Never True Current Hous
[2022-08-31] MEDS: LACTATED RINGERS 1,000 ML 30 ML IV CONT (08:30)
--- NOTE | 2022-08-31 08:54 | WPDHPUPDATE1 ---
History and Physical Update Update Date/Time: 08/31/22 08:54 History and Physical has been reviewed, including an updated exam of the patient. There are NO changes in the patient's condition. Risks, benefits, and alternatives have been discussed and questions answered. Patient agrees to proceed with procedure.
[2022-08-31] MEDS: LIDOCAINE HCL 1% LOCAL INJ 20 ML VIAL 10 ML INFILTRATE (09:44)
--- NOTE | 2022-08-31 09:49 | P.OP_ITS ---
Procedure Note - Detailed Date of Procedure 08/31/22 Pre-op Diagnosis Cellulitis Right Great Toe/Uncontrolled Diabetes, right great toe abscess Post-op Diagnosis Same Procedure Performed Incision and drainage of right great toe abscess Surgeon Hunter Skinner MD Anesthesia General Indications Patient is a 47-year-old female who presented with infection are right great toe. She has uncontrolled diabetes. She eventually developed an abscess the plantar surface of the right great toe. He presents now for incision and drainage of the abscess. Findings 1.5x1.5 by 1cm plantar ulcer of the right great toe. Necrotic tissue extended to the periosteal tissues but not appear to grossly exposed for infect the bone. No extension to the forefoot. Description of Procedure After informed consent was obtained patient brought to the operating room she was placed supine position and general LMA anesthesia was administered. The right lower extremity from the ankle distally was then prepped and draped in usual sterile fashion. A time-out was then performed correctly identifying the patient as well as procedure to be performed and verifying the site marking. She was already on scheduled IV antibiotics. I then proceeded to inject 10cc of 1% lidocaine mixed with 0.5% Marcaine around the base of the right great toe for field block. I then proceeded to use a #11 Blade scalpel and incised the abscess over the most fluctuant portion. About 1cc of pus drained and I obtained a wound culture and sent to microbiology for aerobic and anaerobic cultures and Gram stain. I then proceeded to cut away with sharp scalpel and sharp scissor dissection of the necrotic skin edges and underlying necrotic tissue in the subcutaneous tissues. The necrotic tissue extended the periosteum of the bone but did not exposed bone or appear to grossly infected bone. There was bleeding from the skin edges some the tissues. I then did out the abscess cavity copious sterile saline solution. Hemostasis on the skin edges was a chieved electrocautery. The overall abscess cavity after opening and debriding it measured approximately 1.5cm by 1.5cm by 1cm. It was then packed with quarter-inch iodoform gauze and then wrapped with dry gauze and a Kerlix gauze. The patient tolerated the procedure well no complications. All sponges, needles, and instrument counts were correct at the end procedure. EBL was _ 5 __cc. The patient was awakened and taken to recovery in stable and satisfactory condition. Implants None Estimated Blood Loss 5 Urine Output 0 Drains No Packing Yes (Quarter-inch iodoform gauze plantar surface right great toe) Pathology Other (Wound culture to microbiology for aerobic, anaerobic cultures and Gram stain) Complications No immediate complications Condition Stable Disposition PACU [facility] Billing Surgery - Charge Forward: Surgery Billing
[2022-08-31 10:07] LABS: Glucose Point of Care 156 mg/dl (65-105)
[2022-08-31] MEDS: fentaNYL CITRATE INJ (*CRX) 100 MCG/2 ML VIAL 25 MCG IV PUSH (10:15)
[2022-08-31] MEDS: ACETAMINOPHEN 325 MG TABLET 650 MG PO (11:21)
[2022-08-31 12:05] LABS: Glucose Point of Care 209 mg/dl (65-105)
[2022-08-31] MEDS: INSULIN ASPART (*BKC) 100 UNITS/ML 6 UNITS SUB-Q ×2 (12:23→17:04)
[2022-08-31] MEDS: INSULIN ASPART (*BKC) 100 UNITS/ML SUB-Q ×2 (12:23→17:04)
--- NOTE | 2022-08-31 13:55 | PCPTNOTE ---
On 08/31/22, the student, Farida Sarmiento, provided care and completed [employer] documentation on this patient. I have reviewed the student's documentation and agree with the findings.
--- NOTE | 2022-08-31 15:05 | PM.IMPN ---
Progress Note: A&P Assessment and Plan (1) Cellulitis of great toe, right: Code(s): L03.031 - Cellulitis of right toe Status: Acute Assessment and Plan: Patient presented with cellulitis of right great toe and shallow ulceration on plantar surface of right great toe. Febrile on presentation, 100.2?, WBC 16.4, CRP 6.5. Patient initially received IV vancomycin. 08/29: Transitioned to ceftriaxone based on wound cultures which revealed group B strep 08/31: Wound culture with new growth of Staph aureus Vancomycin added again today Blood cultures negative to date Appreciate general surgery consultation WBC remaining stable, continue to trend (2) Abscess of great toe of right foot: Code(s): L02.611 - Cutaneous abscess of right foot Status: Acute Assessment and Plan: See above Appreciate general surgery consultation Patient initially with blister on her great toe. 08/27: Blister on revision open to the bedside Evidence of deeper abscess formation noted Patient underwent I&D of right great toe abscess today by Dr. Skinner. Tolerated the procedure well Intraoperative cultures obtained, await results and tailor antibiotics Supportive care (3) Uncontrolled diabetes mellitus: Status: Acute Assessment and Plan: A1c is 11.1. Patient stopped taking metformin 1 year ago due to persistent diarrhea, has not been on any medications since then. Continue with Accu-Cheks, high-dose sliding scale insulin, hypoglycemic protocol. Blood sugars improving. Continue novoLog 6 units scheduled with meals and Lantus 16 units qHS. Appreciate senior health educator consultation. Patient is agreeable to starting home insulin. States she cannot tolerate metformin. Unfortunately does not have insurance, therefore treatment options will be limited. Consider glimepiride on discharge Continue diabetic diet. Subjective Date/time seen: 08/31/22 15:05 Interval history: Date of service: 08/31/2022 Charla Harris is a 47-year-old female with poorly controlled type 2 diabetes mellitus who is seen in follow-up for right great toe cellulitis/diabetic foot wound. She underwent I&D in the OR today and tolerated this well. States her pain is well controlled currently but she is starting to get some occasional shooting pains into the toe. She has concerns about using the postop shoe, stating she is afraid she will slide around to motion and would like to try a boot instead. She complains of a bitemporal headache that has gradually worsened throughout the day. She denies shortness of breath, cough, chest pain. Denies urinary symptoms. Review of Systems Review of Systems: All systems reviewed & are unremarkable except as noted in HPI and below Exam Narrative: General: Well-nourished, well-appearing 47-year-old female, sitting up in bed, comfortable Neuro: awake, alert and oriented x4, speech clear, no focal neuro deficits noted HEENMT: normocephalic, atraumatic, EOMI, sclerae anicteric Respiratory: clear to auscultation bilaterally, nonlabored breathing Cardio: regular rate, regular rhythm with S1-S2 Abdomen: nondistended, normoactive bowel sounds, soft, nontender to palpation Extremities: Right foot is wrapped in dressing, not removed given recent placement postoperatively. Dressing is clean and dry, no discharge or exudate. right lower extremity with trace edema, LLE no edema, erythema, or tenderness to palpation, able to wiggle toes bilaterally, brisk capillary refill bilaterally Skin: no rashes or lesions, warm and dry Psych: appropriate mood and affect, judgment and insight intact Objective Data Vital Signs Vital Signs: Vital Signs - 24 hr 08/30/22 21:28 08/31/22 05:24 08/31/22 08:00 Temperature 99.2 F 97.2 F L Pulse Rate 89 83 Respiratory Rate 18 16 Blood Pressure 140/77 113/64 Pulse Oximetry 99 99 Oxygen Delivery Room Air Oxygen Flow Rate 08/31/22 08:38 08/31/22 09:4
[2022-08-31 16:29] LABS: Glucose Point of Care 242 mg/dl (65-105)
[2022-08-31] MEDS: NEOMYCIN/POLYMYXIN/BACITRACIN OINTMENT PACKET 1 PACKET (19:05)
[2022-08-31] MEDS: HYDROcodone/acetaminophen (*CRX) 5-325 MG TABLET 1 TAB PO (20:41)
[2022-08-31] MEDS: INSULIN GLARGINE (*BKC) 100 UNITS/ML 16 UNITS SUB-Q (20:41)
[2022-08-31 21:09] LABS: Glucose Point of Care 123 mg/dl (65-105)
[2022-09-01] VITALS: BP 128/68; PULSE 84; RESP 16; TEMP 36.3; O2SAT 98
[2022-09-01 04:00] VITALS: BP 120/68; PULSE 79; RESP 14; TEMP 35.8; O2SAT 99
[2022-09-01 06:12] LABS: Hematocrit 33.6 % (37.0-47.0); Hemoglobin 11.3 g/dL (12.0-15.0); Mean Corpuscular HGB Conc 33.6 g/dl (32-36); Mean Corpuscular Hemoglobin 30.4 pg (26-34); Mean Corpuscular Volume 90.3 fl (80-100); Mean Platelet Volume 9.8 fl (7.4-10.4); Platelet Count Result 284 k/mm3 (150-375); Red Blood Count 3.72 M/mm3 (4.2-5.4); Red Cell Distribution Width 12.5 % (11.5-14.5); White Blood Count 11.5 K/mm3 (4.5-10.0)
[2022-09-01 06:25] LABS: Anion Gap 7 mmol/L (8-16); Blood Urea Nitrogen 10 mg/dL (7-17); Carbon Dioxide 28 mmol/L (22-30); Chloride 103 mmol/L (98-107); Estimated CRCL calculation 86 ml/min; Estimated Glomerular Filt Rate > 60; Glucose 163 mg/dL (65-110); Potassium 3.8 mmol/L (3.4-5.0); Sodium 138 mmol/L (137-145)
[2022-09-01 07:51] LABS: Glucose Point of Care 170 mg/dl (65-105)
[2022-09-01 08:00] VITALS: BP 121/60; PULSE 88; RESP 16; TEMP 36.3; O2SAT 99
[2022-09-01] MEDS: ENOXAPARIN 40 MG/0.4 ML SYRINGE SUB-Q (08:21)
[2022-09-01] MEDS: INSULIN ASPART (*BKC) 100 UNITS/ML 6 UNITS SUB-Q ×3 (08:21→16:32)
[2022-09-01] MEDS: HYDROcodone/acetaminophen (*CRX) 5-325 MG TABLET 1 TAB PO ×2 (08:24→21:38)
--- NOTE | 2022-09-01 09:48 | WPDANESPN ---
Anes - Prog Note Post-Op Date/Time: 09/01/22 09:48 Cardiovascular status: normal Respiratory status: normal Airway patency: baseline Mental status: baseline Post-Op hydration status: normal Vital Signs: Last Vital Signs Temp 97.4 F L 09/01/22 08:00 Pulse 88 09/01/22 08:00 Resp 16 09/01/22 08:00 BP 121/60 09/01/22 08:00 Pulse Ox 99 09/01/22 08:00 O2 Del Method Room Air 09/01/22 08:00 O2 Flow Rate 10 08/31/22 09:55 Pain Score (VAS): 0 I/O: Intake & Output 08/31/22 09/01/22 09/01/22 23:59 07:59 15:59 Intake Total 770 400 240 Balance 770 400 240 Laboratory Tests 09/01/22 05:49 09/01/22 05:49 08/31/22 08/31/22 08/31/22 10:05 12:02 16:23 WBC RBC Hgb Hct MCV MCH MCHC RDW Plt Count MPV Sodium Potassium Chloride Carbon Dioxide Anion Gap BUN Creatinine Estim Creat Clear Calc Estimated GFR Glucose POC Capillary Glucose 156 H 209 H 242 H Calcium 08/31/22 09/01/22 09/01/22 20:15 05:49 07:42 WBC 11.5 H RBC 3.72 L Hgb 11.3 L Hct 33.6 L MCV 90.3 MCH 30.4 MCHC 33.6 RDW 12.5 Plt Count 284 MPV 9.8 Sodium 138 Potassium 3.8 Chloride 103 Carbon Dioxide 28 Anion Gap 7 L BUN 10 Creatinine 0.70 Estim Creat Clear Calc 86 Estimated GFR > 60 Glucose 163 H POC Capillary Glucose 123 H 170 H Calcium 9.0 Microbiology 08/25/22 22:53 Blood Blood Culture - Final 08/25/22 22:53 Blood Blood Culture - Final Post-procedural complaints: none Patient Feedback: Patient satisfied with anesthetic care.
[2022-09-01] MEDS: SILVERGEL (ELTA) 45 ML 1 APPLIC TOPICAL (10:02)
--- NOTE | 2022-09-01 11:33 | PM.IMPN ---
Progress Note: A&P Assessment and Plan (1) Cellulitis of great toe, right: Code(s): L03.031 - Cellulitis of right toe Status: Acute Assessment and Plan: Patient presented with cellulitis of right great toe and shallow ulceration on plantar surface of right great toe. Febrile on presentation, 100.2?, WBC 16.4, CRP 6.5. Patient initially received IV vancomycin. 08/29: Transitioned to ceftriaxone based on wound cultures which revealed group B strep 08/31: Wound culture with new growth of Staph aureus, Vancomycin added again Continue ceftriaxone and vancomycin at this time while awaiting culture results Blood cultures negative to date Appreciate general surgery consultation WBC improving, continue to trend (2) Abscess of great toe of right foot: Code(s): L02.611 - Cutaneous abscess of right foot Status: Acute Assessment and Plan: See above Appreciate general surgery consultation Patient initially with blister on her great toe. 08/27: Blister unroofed and opened at the bedside Evidence of deeper abscess formation noted and patient underwent I&D of right great toe abscess on 08/[address] Skinner. Tolerated the procedure well Intraoperative cultures obtained, await results and tailor antibiotics Supportive care (3) Uncontrolled diabetes mellitus: Status: Acute Assessment and Plan: A1c is 11.1. Patient stopped taking metformin 1 year ago due to persistent diarrhea, has not been on any medications since then. Continue with Accu-Cheks, high-dose sliding scale insulin, hypoglycemic protocol. Blood sugars improved. Continue novoLog 6 units scheduled with meals and Lantus 16 units qHS. Appreciate agricultural extension educator consultation. Patient is agreeable to starting home insulin. States she cannot tolerate metformin. Unfortunately does not have insurance, therefore treatment options will be limited. Consider glimepiride on discharge Continue diabetic diet. Subjective Date/time seen: 09/01/22 11:33 Interval history: Date of service: 08/31/2022 Charla Harris is a 47-year-old female with poorly controlled type 2 diabetes mellitus who is seen in follow-up for right great toe cellulitis/abscess with/P I& D. She is doing well today. Pain is better controlled currently rated 4/10. Pain is in her right great toe and breaths on the dorsum of her foot. Feels that her lower extremity swelling has improved. Denies numbness or tingling in her extremities. No fever, chills, nausea, vomiting, shortness breath, cough, chest pain. Review of Systems Review of Systems: All systems reviewed & are unremarkable except as noted in HPI and below Exam Narrative: General: Well-nourished, well-appearing 47-year-old female, sitting up in bed, comfortable Neuro: awake, alert and oriented x4, speech clear, no focal neuro deficits noted HEENMT: normocephalic, atraumatic, EOMI, sclerae anicteric Respiratory: clear to auscultation bilaterally, nonlabored breathing Cardio: regular rate, regular rhythm with S1-S2 Abdomen: nondistended, normoactive bowel sounds, soft, nontender to palpation Extremities: Right foot is wrapped in dressing that is clean and dry, no discharge or exudate. Further exam deferred to general surgery. BLE no edema, erythema, or tenderness to palpation, able to wiggle toes bilaterally, brisk capillary refill bilaterally Skin: no rashes or lesions, warm and dry Psych: appropriate mood and affect, judgment and insight intact Objective Data Vital Signs Vital Signs: Vital Signs - 24 hr 08/31/22 11:51 08/31/22 12:47 08/31/22 12:21 Temperature 97.1 F L 97.3 F L Pulse Rate 79 80 Respiratory Rate 14 14 Blood Pressure 143/78 H 145/78 H Pulse Oximetry 97 99 Oxygen Delivery Room Air 08/31/22 13:21 08/31/22 16:00 08/31/22 20:00 Temperature 97.3 F L 97.5 F L 97.4 F L Pulse Rate 88 85 82 Respiratory Rate 14 14 16 Blood Pressure 124/77 122/70 108/62 Pulse Oximetr
[2022-09-01 11:36] LABS: Glucose Point of Care 232 mg/dl (65-105)
[2022-09-01] MEDS: INSULIN ASPART (*BKC) 100 UNITS/ML SUB-Q (11:48)
--- NOTE | 2022-09-01 11:50 | PM.PNGS ---
Progress Note: A&P Assessment and Plan (1) Abscess of great toe of right foot: Code(s): L02.611 - Cutaneous abscess of right foot Status: Acute Assessment and Plan: Abscess has been operatively drained. Wound is now packed. No necrotic tissue res remains. Purulent drainage. Continue present packing with quarter-inch iodoform gauze. Cultures are still pending on the abscess cavity. Can likely be transitioned to oral antibiotics in the next 24 to 48 hours. Crutch training by Physical therapy has been done. Will give her postop boot for ambulation. We then follow-up in the [facility] as an outpatient. Subjective Subjective Date/Time Seen: 09/01/22 11:50 Post Op day: 1 (Status post incision and drainage of right great toe abscess) Interval history: Patient is doing well today. Minimal pain in the right great toe. No fever. Cultures are pending on the abscess. Exam Extrem: Other: Dressing removed from the right great toe. Abscess cavity is exposed with some bloody drainage which was nonpurulent. She is able to extend and flex the right great toe. Redness and swelling is decreased. No pus draining from the wound. No necrotic tissue noted Objective Data Vital Signs Vital Signs: Vital Signs - 24 hr 08/31/22 11:51 08/31/22 12:47 08/31/22 12:21 Temperature 36.2 C L 36.3 C L Pulse Rate 79 80 Respiratory Rate 14 14 Blood Pressure 143/78 H 145/78 H Pulse Oximetry 97 99 Oxygen Delivery Room Air 08/31/22 13:21 08/31/22 16:00 08/31/22 20:00 Temperature 36.3 C L 36.4 C L 36.3 C L Pulse Rate 88 85 82 Respiratory Rate 14 14 16 Blood Pressure 124/77 122/70 108/62 Pulse Oximetry 100 99 99 Oxygen Delivery 09/01/22 00:00 09/01/22 04:00 09/01/22 08:00 Temperature 36.3 C L 35.8 C L 36.3 C L Pulse Rate 84 79 88 Respiratory Rate 16 14 16 Blood Pressure 128/68 120/68 121/60 Pulse Oximetry 98 99 99 Oxygen Delivery 09/01/22 08:00 Temperature Pulse Rate Respiratory Rate Blood Pressure Pulse Oximetry Oxygen Delivery Room Air Intake/Output Intake/Output: Intake & Output 08/29/22 08/30/22 08/31/22 09/01/22 23:59 23:59 23:59 23:59 Intake Total 2370 1250 2110 640 Output Total 0 Balance 2370 1250 2110 640 Meds/Results Medications: Active Medications Generic Name Dose Route Start Last Admin Trade Name Freq PRN Reason Stop Dose Admin Acetaminophen 650 mg 08/26/22 12:06 08/31/22 11:21 Acetaminophen 325 Mg Tablet PO 650 mg Q6H PRN Administration Mild Pain (1-3) or Fever Hydrocodone Bitart/Acetaminophen 1 tab 08/26/22 12:05 09/01/22 08:24 Hydrocodone/Acetaminophen (*Crx) 5-325 Mg Tablet PO 1 tab Q6H PRN Administration Pain Rated 4-6 Al Hydrox/Mg Hydrox/Simethicone 30 ml 08/26/22 05:26 Mag Hydrox/Al Hydrox/Simeth 30 Ml Udc PO Q6H PRN Indigestion Dextrose 12.5 gm 08/26/22 08:41 Dextrose 50% 25 Gm/50 Ml Syringe IV PUSH PRN PRN Hypoglycemia Protocol Enoxaparin Sodium 40 mg 08/26/22 09:00 09/01/22 08:21 Enoxaparin 40 Mg/0.4 Ml Syringe SUB-Q 40 mg DAILY LASHAY Administration Glucagon 1 mg 08/26/22 08:41 Glucagon For Inj 1 Mg Vial IM PRN PRN Hypoglycemia Protocol Glucose 15 gm 08/26/22 08:41 Glucose Oral Gel 15 Gm Of Glucse In 37.5 Gm Tube PO PRN PRN Hypoglycemia Protocol Dextrose 1,000 mls @ 100 mls/hr 08/26/22 08:41 Dextrose 5% 1,000 Ml IVPB PRN PRN Hypoglycemia Protocol Ceftriaxone Sodium 1 gm in 50 mls @ 100 mls/hr 08/29/22 15:00 08/31/22 18:22 Rocephin 1 Gm/Ns 50 Ml IVPB Infused Q24H LASHAY Infusion Vancomycin HCl 1,500 mg in 500 mls @ 250 mls/hr 08/31/22 12:00 08/31/22 23:44 Vancomycin 1,500 Mg/D5w 500 Ml IVPB 250 mls/hr Q12H LASHAY Administration Insulin Aspart 6 units 08/29/22 17:00 09/01/22 08:21 Insulin Aspart (*Bkc) 100 Units/Ml SUB-Q 6 units TIDWM LASHAY Administration
[2022-09-01 12:00] VITALS: BP 117/82; PULSE 88; RESP 18; TEMP 36.2; O2SAT 97
[2022-09-01 15:57] VITALS: BP 134/71; PULSE 80; RESP 16; TEMP 36.8; O2SAT 100
[2022-09-01 16:26] LABS: Glucose Point of Care 179 mg/dl (65-105)
[2022-09-01 21:28] LABS: Glucose Point of Care 166 mg/dl (65-105)
[2022-09-01] MEDS: INSULIN GLARGINE (*BKC) 100 UNITS/ML 16 UNITS SUB-Q (21:38)
[2022-09-01 21:53] VITALS: BP 143/70; PULSE 79; RESP 14; TEMP 36.2; O2SAT 99
[2022-09-02 00:11] LABS: Vancomycin Trough 17.7 ug/mL (10.0-20.0)
[2022-09-02 06:00] VITALS: BP 109/64; PULSE 74; RESP 14; TEMP 35.8; O2SAT 98
[2022-09-02 06:42] LABS: Hematocrit 34.1 % (37.0-47.0); Mean Corpuscular HGB Conc 32.3 g/dl (32-36); Mean Corpuscular Hemoglobin 29.2 pg (26-34); Mean Corpuscular Volume 90.5 fl (80-100); Mean Platelet Volume 10.2 fl (7.4-10.4); Platelet Count Result 304 k/mm3 (150-375); Red Blood Count 3.77 M/mm3 (4.2-5.4); Red Cell Distribution Width 12.6 % (11.5-14.5); White Blood Count 11.5 K/mm3 (4.5-10.0)
[2022-09-02 06:54] LABS: Anion Gap 6 mmol/L (8-16); Blood Urea Nitrogen 15 mg/dL (7-17); Carbon Dioxide 28 mmol/L (22-30); Chloride 102 mmol/L (98-107); Estimated CRCL calculation 99 ml/min; Estimated Glomerular Filt Rate > 60; Glucose 153 mg/dL (65-110); Potassium 3.8 mmol/L (3.4-5.0); Sodium 136 mmol/L (137-145)
[2022-09-02 07:37] LABS: Glucose Point of Care 200 mg/dl (65-105)
[2022-09-02] MEDS: INSULIN ASPART (*BKC) 100 UNITS/ML 6 UNITS SUB-Q ×2 (09:05→12:18)
[2022-09-02] MEDS: HYDROcodone/acetaminophen (*CRX) 5-325 MG TABLET 1 TAB PO (09:05)
[2022-09-02] MEDS: ENOXAPARIN 40 MG/0.4 ML SYRINGE SUB-Q (09:05)
[2022-09-02] MEDS: SILVERGEL (ELTA) 45 ML 1 APPLIC TOPICAL (09:06)
--- NOTE | 2022-09-02 11:05 | PM.PNGS ---
Progress Note: A&P Assessment and Plan (1) Abscess of great toe of right foot: Code(s): L02.611 - Cutaneous abscess of right foot Status: Acute Assessment and Plan: Doing well. Continue packing wound and dry gauze daily. Patient can shower. She is to ambulate a walking boot with the aid of crutches. Follow see me in my office in 1 to 2 weeks. Recommend a course of oral antibiotics for 2 weeks from the date of incision and drainage of the abscess. Antibiotics as per hospitalist. Subjective Subjective Date/Time Seen: 09/02/22 11:05 Interval history: Patient is doing well. She is able to ambulate better with a walking boot and using crutches. Cultures are still pending from the incision and drainage of the abscess but the initial cultures but she was admitted showed Staph aureus and strep species which were pansensitive. Exam Extrem: Other: Right great toe wound clean necrotic tissue. Some serous drainage noted. Minimal redness and induration. Objective Data Vital Signs Vital Signs: Vital Signs - 24 hr 09/01/22 12:00 09/01/22 15:57 09/01/22 21:53 Temperature 36.2 C L 36.8 C 36.2 C L Pulse Rate 88 80 79 Respiratory Rate 18 16 14 Blood Pressure 117/82 134/71 143/70 H Pulse Oximetry 97 100 99 Oxygen Delivery 09/02/22 06:00 09/02/22 09:15 Temperature 35.8 C L Pulse Rate 74 Respiratory Rate 14 Blood Pressure 109/64 Pulse Oximetry 98 Oxygen Delivery Room Air Intake/Output Intake/Output: Intake & Output 08/30/22 08/31/22 09/01/22 09/02/22 23:59 23:59 23:59 23:59 Intake Total 1250 2110 2980 1290 Output Total 0 Balance 1250 2110 2980 1290 Meds/Results Medications: Active Medications Generic Name Dose Route Start Last Admin Trade Name Freq PRN Reason Stop Dose Admin Acetaminophen 650 mg 08/26/22 12:06 08/31/22 11:21 Acetaminophen 325 Mg Tablet PO 650 mg Q6H PRN Administration Mild Pain (1-3) or Fever Hydrocodone Bitart/Acetaminophen 1 tab 08/26/22 12:05 09/02/22 09:05 Hydrocodone/Acetaminophen (*Crx) 5-325 Mg Tablet PO 1 tab Q6H PRN Administration Pain Rated 4-6 Al Hydrox/Mg Hydrox/Simethicone 30 ml 08/26/22 05:26 Mag Hydrox/Al Hydrox/Simeth 30 Ml Udc PO Q6H PRN Indigestion Dextrose 12.5 gm 08/26/22 08:41 Dextrose 50% 25 Gm/50 Ml Syringe IV PUSH PRN PRN Hypoglycemia Protocol Enoxaparin Sodium 40 mg 08/26/22 09:00 09/02/22 09:05 Enoxaparin 40 Mg/0.4 Ml Syringe SUB-Q 40 mg DAILY LASHAY Administration Glucagon 1 mg 08/26/22 08:41 Glucagon For Inj 1 Mg Vial IM PRN PRN Hypoglycemia Protocol Glucose 15 gm 08/26/22 08:41 Glucose Oral Gel 15 Gm Of Glucse In 37.5 Gm Tube PO PRN PRN Hypoglycemia Protocol Dextrose 1,000 mls @ 100 mls/hr 08/26/22 08:41 Dextrose 5% 1,000 Ml IVPB PRN PRN Hypoglycemia Protocol Vancomycin HCl 1,500 mg in 500 mls @ 250 mls/hr 09/02/22 06:00 09/02/22 08:11 Vancomycin 1,500 Mg/D5w 500 Ml IVPB Infused Q18H LASHAY Infusion Insulin Aspart 6 units 08/29/22 17:00 09/02/22 09:05 Insulin Aspart (*Bkc) 100 Units/Ml SUB-Q 6 units TIDWM LASHAY Administration Insulin Aspart 4 - 8 units 08/30/22 12:00 09/02/22 08:57 Insulin Aspart (*Bkc) 100 Units/Ml SUB-Q Not Given TIDWM [facility] Protocol Insulin Glargine 16 units 08/30/22 21:00 09/01/22 21:38 Insulin Glargine (*Bkc) 100 Units/Ml SUB-Q 16 units HS LASHAY Administration Ondansetron HCl 4 mg 08/26/22 05:26 08/27/22 08:41 Ondansetron Inj 4 Mg/2 Ml Vial IV PUSH 4 mg Q6H PRN Administration Nausea And Vomiting Polyethylene Glycol 17 gm 08/26/22 05:26 Polyethylene Glycol 3350 17 Gm Powd.Pack PO QAM PRN Constipation Silver Nitrate 1 applic 08/27/22 13:00 09/02/22 09:06 Silvergel (Elta) 45 Ml TOPICAL 1 applic DAILY LASHAY Administration Radiology Results: ITS Impressions Fo
[2022-09-02 11:18] LABS: Glucose Point of Care 292 mg/dl (65-105)
--- NOTE | 2022-09-02 11:54 | PM.DS ---
DS: Admitting Diagnosis Discharge Date 09/02/22 Admitting Diagnosis Right great toe cellulitis/dfu, uncontrolled DM DS: Discharge Diagnosis Discharge Diagnosis (1) Abscess of great toe of right foot: Code(s): L02.611 - Cutaneous abscess of right foot Status: Acute Assessment and Plan: s/p I/D will need to complete abx. F/U at general surgery clinic. (2) Cellulitis of great toe, right: Code(s): L03.031 - Cellulitis of right toe Status: Acute (3) Open wnd toe-complicated: Code(s): S91.109A - Unspecified open wound of unspecified toe(s) without damage to nail, initial encounter Status: Acute (4) Uncontrolled diabetes mellitus: Status: Acute Assessment and Plan: Uncontrolled, refuses metformin. Has meter/strips. No ins. coverage. Will plan for nph bid. DS: Summary Hospital Course Reason for hospitalization: Right great toe infection Hospital Course: Charla Harris is a 47 year old female who presented with a right great toe infection in the setting of uncontrolled diabetes. She was treated with abx, vancomycin, as well as surgical management with I/D of the right great toe at bedside. Cultures have grown staph (benitez sensitive) and group b strep. She will need close o/p f/u and will be seen in the surgical clinic for f/u. She is afebrile and doing well on day of discharge. In regards to the DM, a1c is >11. She does not have ins. coverage and we will start NPH bid at home and she will need pcp f/u. We have attempted to help with obtaining this f/u but patient has been somewhat resistant. She has received a meter and strips from asthma educator. We will write for insulin supplies as well as insulin. Status at Discharge Cognitive/behavioral status at discharge: Baseline normal functional status. Time Spent with Patient Time attestation: Total time spent providing and/or coordinating discharge services: >30 minutes. Exam Narrative: GENERAL APPEARANCE: Appears to be in no acute distress. HEAD: normocephalic atraumatic EYES: PERRL, EOMI. Vision grossly intact. ENT: Hearing grossly intact, no nasal discharge NECK: Neck supple, trachea midline. CARDIAC: Normal S1/S2. Rhythm is regular. No murmurs, rubs, or gallops. No cyanosis or pallor. Extremities are warm and well perfused. LUNGS: Clear to auscultation without rales, rhonchi, wheezing or diminished breath sounds. Respirations even and unlabored. ABDOMEN: BS positive x 4 quadrants. Soft, nondistended, nontender. No guarding or rebound. MSK: No joint tenderness/swelling, fair strength in all extremities. PERIPHERAL VASCULAR: Peripheral pulses palpable. Normal perfusion, cap refill <2 seconds. No edema. NEURO: Follows commands. No focal deficits. SKIN: Dressing to the right great toe c/d/i. PSYCH: Stable, no paranoia or delusional thinking. DS: Data Data Completed and Pending Completed studies during hospitalization: Toe xray, foot ct Labs on day of discharge: Labs from last 24 hours 09/02/22 09/02/22 09/02/22 11:16 07:24 06:08 WBC 11.5 H RBC 3.77 L Hgb 11.0 L Hct 34.1 L MCV 90.5 MCH 29.2 MCHC 32.3 RDW 12.6 Plt Count 304 MPV 10.2 Sodium 136 L Potassium 3.8 Chloride 102 Carbon Dioxide 28 Anion Gap 6 L BUN 15 D Creatinine 0.60 L Estim Creat Clear Calc 99 Estimated GFR > 60 Glucose 153 H POC Capillary Glucose 292 H 200 H Calcium 9.0 Vancomycin Trough 09/01/22 09/01/22 09/01/22 23:01 21:23 16:22 WBC RBC Hgb Hct MCV MCH MCHC RDW Plt Count MPV Sodium Potassium Chloride Carbon Dioxide Anion Gap BUN Creatinine Estim Creat Clear Calc Estimated GFR Glucose POC Capillary Glucose 166 H 179 H Calcium Vancomycin Trough 17.7 Preliminary micro results at discharge 08/31/22 09:30 Anaerobic Culture - Preliminary Toe Right Great
--- NOTE | 2022-09-02 12:05 | PCPTNOTE ---
On 09/02/22, the student, CLAUDIA Locke, provided care and completed [facility] documentation on this patient. I have reviewed the student's documentation and agree with the findings.
[2022-09-02] MEDS: INSULIN ASPART (*BKC) 100 UNITS/ML SUB-Q (12:17)
[2022-09-02 13:43] VITALS: BP 137/89; PULSE 86; RESP 18; TEMP 36.4; O2SAT 97
--- NOTE | 2022-09-02 14:07 | PC.NURSE ---
Pt received education from our development educator. They provided her with a glucometer to use at home. RN educated pt on how often to check blood sugar, how to give herself insulin injections, what to do if blood sugar is too low or too high, etc. RN also provided pt with lots of educational packets r/t diabetes management and care. Pt verbalized understanding. RN discussed the need to establish a PCP. Pt verbalized understanding. RN sent pt home with supplies to do wound care at home. Pt aware of F/U with surgery.
== END 2022-09-02 15:22 | disposition home or self-care (01) | DRG 420 ==
LOC: ANHED 20:28 → ANH3MEDSUR 08-26 00:02
PROVIDERS: Physician Assistant; Surgery; Admitting Provider Internal Medicine; Emergency Provider Physician Assistant; Visit Provider Nurse Practitioner Family
PROC: 0JBQ0ZZ Excision of Right Foot Subcutaneous Tissue and Fascia, Open Approach (ICD-10-PCS; principal; 2022-08-31 09:00)
DX: E11.628 Type 2 diabetes mellitus with other skin complications (principal); L02.611 Cutaneous abscess of right foot; E11.65 Type 2 diabetes mellitus with hyperglycemia; L03.031 Cellulitis of right toe; S91.101A Unspecified open wound of right great toe without damage to nail, initial encounter
CPT/HCPCS: 36415; 73660; 73701; 80048; 80053; 80202; 82948; 83036; 83605; 85025; 85027; 85610; 85652; 86140; 86850; 86900; 86901; 87040; 87070; 87075; 87147; 87181; 87186; 87205; 96361; 96365; 96366; 96368; 96372; 96374; 96375; 97116; 97161; 99285; A9270; G0378; J0696; J1170; J1650; J1815; J2185; J2250; J2370; J2405; J2704; J3010; J3370; J7030; J7120; Q9967